=== PATIENT | male | born 1960 | race Caucasian/White ===

== ENCOUNTER 2024-04-26 00:40 | Day surgery (SDC) | payer OTHER, SELFPAY ==
[2024-04-18 11:13] VITALS: BMI 35.0
--- NOTE | 2024-04-18 11:14 | PC.NURSE ---
Report to the Outpatient Waiting Room, entrance under the green pavilion located off [facility], at time _0815_ on date _[id number]_. Planned Procedure Time: _1015_.? Time changes happen often and if your time is changed the preop area will call you the afternoon before. - You and your visitor will be asked to self-screen and do not enter if you have any COVID symptoms. Please call surgeon if you need to reschedule. - A mask is optional within the hospital at this time. Patients may have clear liquids (water, carbonated beverages, clear teas, apple juice) until 3 hours prior to surgery with a maximum of 20 ounces. - No food from midnight until time of surgery and no smoking, or chewing Tobacco (or any form of nicotine). No chewing gum, candy or mints. Take only the following medications with a SIP of water on the morning of surgery: ____Levothyroxine____ DO NOT STOP ANY OF YOUR OTHER PRESCRIPTION MEDICATIONS PRIOR TO SURGERY EXCEPT THE FOLLOWING Medications to discontinue per physician ___None____ Date to take last dose Please no make-up, nail sami, hairspray, perfume, deodorant, or body powder the day of surgery.? No jewelry (including any body piercings) or valuables the day of surgery, leave them at home.? Please take a shower or bath the night before, or the morning of, surgery with an antibacterial soap.? Wear comfortable, loose fitting clothing.? - Jewelry must be removed prior to entering the operating room.? Rings and piercings that are not removed may be cut off. - The hospital will not accept responsibility for valuables.? - Please leave all valuables, including medications, at home the day of surgery. If you are going home after surgery, a licensed assembly line driver must drive you home.? - NO public transportation without another adult if you receive anesthesia. - We recommend that an adult stay with you for 24 hours following discharge. - We also recommend that you do not drive, make important decision, drink alcoholic beverages, or take any drugs that were not prescribed by your health care provider for at least 24 hours after your discharge time. Hold all vitamins and supplements for 3 days per anesthesiologist. Follow any additional instructions given to you from your surgeon. Telephone instructions given to __Desmond__and asked if any additional questions and then verbalized understanding. Patient advised to call surgeon office or pre surgery nurse liaison [phone] if any additional questions
--- NOTE | 2024-04-24 06:57 | P.HP_ITS ---
History of Present Illness History of Present Illness Consent: Risks, benefits, and alternatives have been discussed and questions answered. Patient agrees to proceed with procedure. Chief complaint: elevated PSA Narrative: Desmond Christopher is a 63 year old male recently seen by our nurse practitioner with a PSA progression to 7.17. Prostate MRI demonstrates a 42 g gland with one PI-RADS 5 lesion in the left peripheral zone at the apex. After discussion of options he is elected for uroNav fusion biopsy. He is aware of the risks including, but not limited to, failure to diagnose the cancer, hematuria, rectal bleeding and bacteremia. Review of Systems Review of Systems: All systems reviewed & are unremarkable except as noted in HPI and below PMFSH Social History Social History Smoking status: Never smoker Living arrangements: with family Spiritual care concerns: No Meds Home Medications and Allergies Home Medications ?Medication ?Instructions ?Recorded ?Confirmed ?Type allopurinol 300 mg tablet 300 mg PO DAILY 04/18/24 04/18/24 History cyanocobalamin (vitamin B-12) 1,000 mcg PO DAILY 04/18/24 04/18/24 History 1,000 mcg tablet,extended release (Vitamin B-12 ER) levothyroxine 150 mcg tablet 150 mcg PO DAILY 04/18/24 04/18/24 History lisinopril 20 mg tablet 20 mg PO DAILY 04/18/24 04/18/24 History rosuvastatin 5 mg tablet 5 mg PO HS 04/18/24 04/18/24 History Allergies Allergy/AdvReac Type Severity Reaction Status Date / Time No Known Allergies Allergy Verified 04/18/24 11:03 Exam Const: General: no acute distress Resp: Effort & Inspection: normal respiratory effort GI: Inspection: non-distended GI Palp: No abdominal tenderness and No Guarding due to palpation present (GI) Auscultation: normal bowel sounds Assessment and Plan Assessment and plan (1) Elevated PSA: Code(s): R97.20 - Elevated prostate specific antigen [PSA] Status: Acute Assessment and Plan: * UroNav fusion biopsy
--- OUTSIDE RECORDS SUMMARY | 2024-04-26 00:47 | XMS_ITS | Encounter Summary ---
Author Organization [facility] Address [facility] [place] [address] Care Team Providers Care Holistic Pulser Name Role Phone Mirella Adan Primary Care Provider [phone] Encounter Details Date Type Department Care Team (Late st Contact Info) Description 10/11/2017 Abstract [facility] Mirella Adan PA [address] [place] [address] Social History Tobacco Use Types Packs/Day Years Used Date Smoking Tobacco: Never Assessed Sex and Gender Information Value Date Recorded Sex Assigned at Not on file Legal Sex Male 6:55 PM CDT Gender Identity Not on file Sexual Orientation Not on file documented as of this encounter Miscellaneous Notes * Letter - NADEEN Sheppard - 10/11/2017 12:00 AM CDT 10-11-2017 Desmond Christopher [address] [place] [id number] : 1960 Lab Order: TSH, free T4 Dx: E03.9 Hypothyroidism, unspecified Fasting [] Non-Fasting [x] Normal [x] Stat [] ING BOOKS LIBRARY CLERK * Letter - NADEEN Sheppard - 10/11/2017 12:00 AM CDT 10-11-2017 Desmond Christopher [address] [address] : 1960 Lab Order: Uric Acid Dx: M10.9 Gout, unspecified Fasting [] Non-Fasting [x] Normal [x] Stat [] ING BOOKS LIBRARY CLERK documented in this encounter Plan of Treatment Not on file documented as of this encounter Visit Diagnoses Not on filedocumented in this encounter Additional Health Concerns Infection Onset Date Last Indicated Resolved Time COVID-19 Rule Out 12/09/2019 12/09/2019 12/10/2019 3:36 PM CDT documented as of this encounter Care Teams Holistic Pulser Relationship Specialty Start Date End Date Mirella Adan PA [address] [place] [address] PCP - General PHYSICIAN SALVAGE WORKER 02/22/18 documented as of this encounter
--- OUTSIDE RECORDS SUMMARY | 2024-04-26 00:47 | XMS_ITS | Clinical Summary ---
Author Organization [facility] Address [address] [place] [address] Phone Care Team Providers Care Destination Imagination Coordinator Name Role Phone Unavailable Primary Care Provider Unavailabl e Encounters Date Type Department Care Team Description 04/05/2024 External Device Data [facility]STRACTION Provider, Abstract 03/27/2024 External Device Data [facility] Provider, Abstract 03/20/2024 External Device Data [facility]STRACTION Provider, Abstract from Last 3 Months Social History Tobacco Use Types Packs/Day Years Used Date Smoking Tobacco: Never Assessed Sex and Gender Information Value Date Recorded Sex Assigned at Not on file Legal Sex Male 2:45 PM CDT Gender Identity Not on file Sexual Orientation Not on file Plan of Treatment Health Maintenance Due Date Last Done Comments Pre-Diabetes and Diabetes Screening 1960 COLORECTAL SCREENING 2005 Colorectal Cancer Screening 2005 FIT-DNA Q 3 years 2005 FIT/FOBT Q 1 year 2005 Flex Sig/CT Colonography Q 5 years 2005 INFLUENZA VACCINE (#1) 2023 0, 01/15/2019 DTAP/TDAP/TD VACCINES (3 - T d or Tdap) 11/25/2032 11/25/2022, 08/17/2012 RSV VACCINE (60+ or ) (1 - 1-dose 75+ series) 11/17/2035 ZOSTER VACCINE Completed 12/26/2018, 10/10/2018 PNEUMOCOCCAL VACCINE 0-64 YEARS Aged Out No longer eligible b ased on patient's age to complete this topic Insurance [employer] BLUE ACCESS/TRUE BLUE PPO [employer] BLUE ACCESS CHOICE
--- OUTSIDE RECORDS SUMMARY | 2024-04-26 00:47 | XMS_ITS | Encounter Summary ---
Author Organization [facility] Address [address] [place] [address] Care Team Providers Care Fine Chemicals Operator Name Role Phone Mirella Adan Primary Care Provider [phone] Encounter Details Date Type Department Care Team ([facility] st Contact Info) Description 01/18/2024 Sai [employer] Message [facility] [address] [place] [address] [facility], [facility] Provider CT scan Social History Tobacco Use Types Packs/Day Years Used Date Smoking Tobacco: Never Smokeless Tobacco: Never Alcohol Use Standard Drinks/Week Comments No 0 (1 standard drink = 0.6 oz pur e alcohol) AUDIT-C Answer Date Recorded Frequency of Alcohol Consumption Never 02/22/2018 Average Number of Drinks Not on file 018 Frequency of Binge Drinking Not on file 02/11 PHQ-2 Answer Date Recorded Patient Health Questionnaire-2 Score 0 01/12/2024 Sex and Gender Information Value Date Recorded Sex Assigned at Not on file Legal Sex Male 6:55 PM CDT Gender Identity Not on file Sexual Orientation Not on file documented as of this encounter Plan of Treatment Not on file documented as of this encounter Visit Diagnoses Not on filedocumented in this encounter Additional Health Concerns Assessment Noted Time PHQ-9 Depression Total Score: 0 09/02/19 21 7:31 AM CDT documented as of this encounter Care Teams Fine Chemicals Operator Relationship Specialty Start Date End Date Mirella Adan PA [address] [place] [address] PCP - General PHYSICIAN FEATHER DRYING MACHINE OPERATOR 02/22/18 documented as of this encounter
--- OUTSIDE RECORDS SUMMARY | 2024-04-26 00:47 | XMS_ITS | Encounter Summary ---
Author Organization [facility] Address [address] [place] [address] Care Team Providers Care Chief Deputy Sheriff Name Role Phone Mirella Adan Primary Care Provider [phone] Encounter Details Date Type Department Care Team (Late st Contact Info) Description 12/07/2019 Prep for Procedure [facility] [address] [place], [place] [id number] Rinku Arguello MD [address] [address] Social History Tobacco Use Types Packs/Day Years Used Date Smoking Tobacco: Never Smokeless Tobacco: Never Alcohol Use Standard Drinks/Week Comments No 0 (1 standard drink = 0.6 oz pur e alcohol) AUDIT-C Answer Date Recorded Frequency of Alcohol Consumption Never 02/22/2018 Average Number of Drinks Not on file 018 Frequency of Binge Drinking Not on file 02/11 PHQ-2 Answer Date Recorded PHQ-2 Score - If the patient scores above 3, please move on to questions 3-9 0 11/15/2019 Sex and Gender Information Value Date Recorded Sex Assigned at Not on file Legal Sex Male 6:55 PM CDT Gender Identity Not on file Sexual Orientation Not on file COVID-19 Exposure Response Date Recorded In the last month, have you been in contact with someone who was confirmed or suspected to have Coronavirus / COVID-19? No / Unsure 12/09/2019 12:59 PM CDT documented as of this encounter Plan of Treatment Not on file documented as of this encounter Results * PRE-SURGICAL/PRE-PROCEDURE CORONAVIRUS (COVID 19) (12/09/2019 1:20 PM CDT) CORONAVIRUS SARS COV 2 PCR (RESP) NOT DETECTED NOT DETECTED 12/10/2019 3:35 PM CD[address] [facility] Comment: A Not Detected (negative) test result for this test means that SARS- CoV-2 RNA was not present in the specimen above the limit of detection. A negative result does not rule out the possibility of COVID-19 and should not be used as the sole basis for treatment or patient management decisions. If COVID-19 is still suspected, based on exposure history together with other clinical findings, re-testing should be considered in consultation with public health authorities. Laboratory test results should always be considered in the context of clinical observations and epidemiological data in making a final diagnosis and patient management decisions. Please review the Fact Sheets and FDA authorized labeling available for health care providers and patients using the following websites: https://www.bLife.com/home/Covid-19/HCP/QuestIVD/fact- sheet.html https://www.bLife.Enventum/home/Covid-19/Patients/ QuestIVD/fact-sheet.html This test has been authorized by the FDA under an Emergency Use Authorization (EUA) for use by authorized laboratories. Due to the current public health emergency, [facility] is receiving a high volume of samples from a wide variety of swabs and media for COVID-19 testing. In order to serve patients during this public health crisis, samples from appropriate clinical sources are being tested. Negative test results derived from specimens received in non-commercially manufactured viral collection and transport media, or in media and sample collection kits not yet authorized by FDA for COVID-19 testing should be cautiously evaluated and the patient potentially subjected to extra precautions such as additional clinical monitoring, including collection of an additional specimen. Methodology: Nucleic Acid Amplification Test (NAAT) includes PCR or TMA Additional information about COVID-19 can be found at the [facility] website: www.Existence Before Essence.com/Covid19. Test performed at [facility] [address] [place] [address] Director: JENISE WHEAT DO,MPH FIRST TEST YES 12/09/2019 1:00 PM CDT [facility] EMPLOYED IN HEALTHCARE NO 12/09/2019 1:00 PM CDT [facility] SYMPTOMATIC DEFINED BY CDC NO 12/09/2019 1:00 PM CDT [facility] DATE OF SYMPTOM ONSET UNKNOWN 12/09/2019 1:24 PM CDT [facility] HOSPITALIZATION STATUS NO 12/09/2019 1:00 PM CDT [facility] PATIENT IN ICU NO 12/09/2019 1:00 PM CDT [facility] RESIDENT OF [facility] CARE NO 12/09/2019 1:00 PM CDT [facility] NO 12/09/2019 1:24 PM CDT [facility] PATIENT'S RACE WHITE OR 12/09/2019 1:00 PM CDT [facility] ETHNICITY NONHISPANIC 12/09/2019 1:00 PM CDT [facility] SOURCE (QST) NASOPHARYNGEAL SWAB 12/09/2019 1:00 PM CDT [facility] NASOPHARYNGEAL SWAB / Unknown 12/09/2019 1:20 PM CDT Rinku Arguello MD MICROBIOLOGY - GENERAL ORDERABLE S Final Result [facility] [address] [place] [address], [facility] [id number] [place] [address], documented in this encounter Visit Diagnoses Diagnosis Preop testing- Primary Preoperative examination, unspecified documented in this encounter Additional Health Concerns Infection Onset Date Last Indicated Resolved Time COVID-19 Rule Out 12/09/2019 12/09/2019 12/10/2019 3:36 PM CDT documented as of this encounter Care Teams Chief Deputy Sheriff Relationship Specialty Start Date End Date Mirella Adan PA [address] [place] [address] PCP - General PHYSICIAN ATM TECHNICIAN 02/22/18 documented as of this encounter
--- OUTSIDE RECORDS SUMMARY | 2024-04-26 00:47 | XMS_ITS | Clinical Summary ---
Author Organization [facility] Address [facility] [place] [address] Care Team Providers Care Signal Fitter Name Role Phone Mirella Adan Primary Care Provider [phone] Allergies No known active allergies Medications aspirin EC 81 MG tablet Take 1 tablet (81 mg total) by mouth daily. Active levothyroxine (SYNTHROID) 150 MCG tabletIndications:H ypothyroidism, unspecified type Take 1 tablet (150 mcg total) by mouth daily. 90 tablet 3 4 Active lisinopril (PRINIVIL) 20 MG tabletIndications:H ypertension, unspecified type Take 1 tablet (20 mg total) by mouth daily. 90 tablet 3 4 Active celecoxib (CELEBREX) 200 MG capsuleIndications: Primary osteoarthritis, unspecified site Take 1 capsule (200 mg total) by mouth daily. 90 capsule 1 4 Active allopurinol (ZYLOPRIM) 300 MG tabletIndications:C hronic gout of multiple sites, unspecified cause Take 1 tablet (300 mg total) by mouth daily. 90 tablet 3 4 Active rosuvastatin (CRESTOR) 5 MG tabletIndications:H yperlipidemia, unspecified hyperlipidemia type Take 1 tablet (5 mg total) by mouth nightly at bedtime. at bedtime 90 tablet 3 4 Active Active Problems Problem Noted Date Diagnosed Date Hyperlipidemia, unspecified hyperlipidemia type 09/07/2021 Hypertension, unspecified type 09/01/2020 Screening for colon cancer 12/07/2019 Overview (12/07/2019): Added automatically from request for surgery [id number] Gout 08/17/2012 Hypothyroidism 08/17/2012 Overview (02/23/2018): slight tremor Obesity 08/17/2012 Resolved Problems Problem Noted Date Diagnosed Date Resolved Date Neck mass 02/06/2019 09/07/2021 Overview (02/06/2019): Added automatically from request for surgery [id number] Encounters Date Type Department Care Team Description 03/16/2024 Scan [email or web address].sh SRVCS Scanned, [facility] 02/21/[address] [place] [phone] Mirella Adan, PA Referral 01/31/[address] [place] [phone] Mirella Adan, PA Lab Results ([facility]) 01/31/2024 Orders [address] [place] [phone] Mirella Adan, PA 01/27/2024 Scan ViViFi INFO SRVCS Scanned, [facility] Lab (SCAN) from Last 3 Months Immunizations Name Administration Dates Next Due Flublok (Quadrivalent) 12/09/2019 Fluzone 6 Months+ Quad (0.5 mL Prefilled Syringe ) 01/15/2019 Influenza Adult (Generic) 12/09/2019 Shingrix 12/26/2018,10/10/2018 Td 08/14/2007 Tdap (Adacel) 11/25/2022 Tdap (Generic) 08/17/2012 Family History Medical History Relation Comments Alcohol Abuse Brother Cancer Father tongue-smoker Stroke Maternal Grandfather Alcohol Abuse Mother Relation Status Comments Brother Father Maternal Grandfather Mother Social History Tobacco Use Types Packs/Day Years Used Date Smoking Tobacco: Never Smokeless Tobacco: Never Tobacco Cessation:Counseling Given: No Alcohol Use Standard Drinks/Week Comments No 0 [...] on file Sexual Orientation Not on file Last Filed Vital Signs Vital Sign Reading Time Taken Comments Blood Pressure 129/88 01/12/2024 3:20 PM CDT Pulse 83 01/12/2024 3:20 PM CDT Temperature 36.2 C (97.1 F) 01/12/2024 3:20 PM CDT Respiratory Rate 18 01/12/2024 3:20 PM CDT Oxygen Saturation 98% 01/12/2024 3:20 PM CDT Inhaled Oxygen Concentration - - Weight 128.5 kg (283 lb 6.4 oz) 01/12/2024 3:20 PM CDT Height 188 cm (6' 2 ) 01/12/2024 3:20 PM CDT Body Mass Index 36.39 01/12/2024 3:20 PM CDT Plan of Treatment Health Maintenance Due Date Last Done Comments COVID-19 Vaccine ( season) 2023 01/04/2022, 01/16/2021, 05/23/2020, Additional history exists Influenza Adult (#1) 2023 01/04/2022, 04/03/2021, 12/09/2019, Additional history exists PHQ-2 (Physician [place]) 03/14/2024 01/12/2024 Annual Physical 01/11/2025 01/12/2024, 11/12, 09/07/2021, Additional history exists PHQ-2 (Physician [place]) 01/11/2025 01/12/2024 Colorectal Cancer Screening Colonoscopy (10 Years) 12/11/2029 12/12/2019 DTaP, Tdap and Td Vaccines (3 - Td or Tdap) 11/25/2032 11/25/2022, 08/17/2012, 08/14/2007 RSV Immunization or 60+ Years (1 - 1-dose 75+ series) 11/17/2035 Zoster Vaccines Completed 12/26/2018, 10/10/2018 Hepatitis C Completed 12/08/2022 Meningococcal B Vaccine Aged Out No l onger eligible based on patient's age to complete this topic Meningococcal Vaccine Aged Out No ida bharathi eligible based on patient's age to complete this topic Pneumococcal Vaccine: Pediatrics (0 to 5 Years) and At-Risk Patients (6 to 64 Years) Aged Out No longer eligible based on patient's age to complete this topic RSV Immunizations Under 20 Months Aged Out No longer eligible based on patient's age to complete this topic Procedures Procedure Name Priority Date/Time Associated Diagnosis Comments OUTSIDE LAB (SCAN ORDER) 01/27/2024 HEP C SCANNED ORDERS Routine 12/08/2022 from Last 3 Months or Most Recently Relevant to Health Maintenance Results * OUTSIDE LAB (SCAN ORDER) (01/27/2024) 01/27/2024 [facility] Scanned SCANNING Final Resu lt * HEP C SCANNED ORDERS (12/08/2022) [facility] Scanned SCANNING Final Resu lt [facility] from Last 3 Months or Most Recently Relevant to Health Maintenance Insurance [place] [address] Care Teams Signal Fitter Relationship Specialty Start Date End Date Mirella Adan PA [address] [place], [place] [address] PCP - General PHYSICIAN TELECINE OPERATOR 02/22/18
--- NOTE | 2024-04-26 06:36 | WPDHPUPDATE1 ---
History and Physical Update Update Date/Time: 04/26/24 06:36 History and Physical has been reviewed, including an updated exam of the patient. There are NO changes in the patient's condition. Risks, benefits, and alternatives have been discussed and questions answered. Patient agrees to proceed with procedure.
[2024-04-26] MEDS: LACTATED RINGERS 1,000 ML 30 ML IV CONT (09:00)
--- NOTE | 2024-04-26 09:20 | P.PNAN_ITS ---
Anes - Initial Pre Proc Eval Procedure: Operation Date: 04/26/24 10:15 Proposed Procedures p Trans Rectal Ultrasound Fusion Guided Prostate Biopsy - Rahul Dwyer MD Date/Time: 04/26/24 09:20 Surgeon: Rahul Dwyer MD Pre Op Diagnosis: elevated PSA Patient Data Age: 63 Gender: M Height: 1.91 m Weight: 127.3 kg Allergies Allergy/AdvReac Type Severity Reaction Status Date / Time No Known Allergies Allergy Verified 04/18/24 11:03 Home Medications ?Medication ?Instructions ?Recorded ?Confirmed ?Type allopurinol 300 mg tablet 300 mg PO DAILY 04/18/24 04/18/24 History cyanocobalamin (vitamin B-12) 1,000 mcg PO DAILY 04/18/24 04/18/24 History 1,000 mcg tablet,extended release (Vitamin B-12 ER) levothyroxine 150 mcg tablet 150 mcg PO DAILY 04/18/24 04/18/24 History lisinopril 20 mg tablet 20 mg PO DAILY 04/18/24 04/18/24 History rosuvastatin 5 mg tablet 5 mg PO HS 04/18/24 04/18/24 History Patient hx anesthesia problems: none Family hx anesthesia problems: none Results Review: All pre-operative results and documents have been reviewed as part of the pre- operative evaluation. [facility] Past Medical History Medical History (Updated 04/26/24 @ 09:23 by Zhen Garcia MD) Quadriceps tendon rupture Obesity Hyperlipidemia HTN (hypertension) Social History Social History Smoking status: Never smoker Living arrangements: with family Spiritual care concerns: No Anes - Eval Final PreProcedure Day of Procedure 04/26/24 09:20 Patient weight: obese Heart: regular rate and rhythm Lungs: clear to auscultation Airway: Mallampati scale class II Neurological: alert and oriented Last oral intake: >/= 8 hours ASA classification: III Emergent: no Anesthetic plan: proceed Anesthesia type and monitoring: general GIVS and standard monitoring Results Review: All pre-operative results and documents have been reviewed as part of the pre- operative evaluation. Informed Consent: The patient's anesthetic plan and its attendant risks and benefits were discussed with the patient/family/POA. Questions were solicited and answers pr ovided to the satisfaction of the patient/family/POA.
[2024-04-26 09:57] VITALS: BP 153/94; PULSE 75; RESP 16; TEMP 36.6; O2SAT 96
[2024-04-26 09:59] VITALS: BMI 35.6
--- NOTE | 2024-04-26 10:40 | P.OP_ITS ---
Procedure Note - Detailed Date of Procedure 04/26/24 Pre-op Diagnosis Elevated PSA Post-op Diagnosis Same Procedure Performed Uronav fusion biopsy prostate Surgeon Rahul Dwyer MD Anesthesia General Description of Procedure 1) Activity: * No driving or important decisions [id number]. * No lifting/straining >15 lbs. [id number]. 2) Diet: Resume normal pre-admission diet. 3) Follow-up: I will contact with pathology report and follow-up instructions. Pathology Yes Complications No immediate complications Condition Stable
[2024-04-26 10:43] VITALS: BP 120/81; PULSE 79; RESP 14; O2SAT 97
[2024-04-26 10:53] VITALS: O2SAT 98
[2024-04-26 11:10] VITALS: BP 132/90; PULSE 68; RESP 16
--- NOTE | 2024-04-26 11:30 | SUR.PHASEII ---
Pt states he feels like he needs to urinate but is unsuccessful after two attempts. This RN notified of the patients concerns. orders the patient be bladder scanned. Bladder scan results: 335 This RN reported results to Dr. Dwyer, states results are not concerning and patient can leave when he meets all other discharge criteria.
[2024-04-26 11:40] VITALS: BP 137/87; PULSE 67; RESP 18
[2024-04-26 12:10] VITALS: BP 136/85; PULSE 70; RESP 16
== END 2024-04-26 12:25 | disposition home or self-care (01) ==
PROVIDERS: Visit Provider Urology
PROC: (CPT 55700; principal; 2024-04-26 10:15)
DX: C61 Malignant neoplasm of prostate (principal); N42.32 Atypical small acinar proliferation of prostate; R97.20 Elevated prostate specific antigen [PSA]; E78.5 Hyperlipidemia, unspecified; I10 Essential (primary) hypertension; E66.9 Obesity, unspecified; Z68.35 Body mass index [BMI] 35.0-35.9, adult
CPT/HCPCS: 76872; 55700; G0416; J1100; J2003; J2250; J2405; J2704; J3010; J7120

== ENCOUNTER 2024-05-15 09:01 | Outpatient (CLI) | payer OTHER, SELFPAY ==
[2024-05-15 09:25] LABS: Estimated Glomerular Filt Rate > 60
== END 2024-05-15 09:02 | disposition home or self-care (01) ==
LOC: ANHIMG 09:08
PROVIDERS: Visit Provider Urology
DX: C61 Malignant neoplasm of prostate (principal); K76.0 Fatty (change of) liver, not elsewhere classified; N32.89 Other specified disorders of bladder
CPT/HCPCS: 74177; 78306; A9503; Q9967

== ENCOUNTER 2024-09-18 09:31 | Outpatient (CLI) | payer OTHER, SELFPAY ==
--- NOTE | ~2024-09-18 | XR_ITS ---
CHEST RADIOGRAPH, PA AND LATERAL CLINICAL HISTORY: C61 - Malignant neoplasm of prostate . COMPARISON: None available TECHNIQUE: PA and lateral views of the chest. FINDINGS The cardiomediastinal silhouette is unremarkable. 9 mm calcified granuloma within the left lower lobe, unchanged from CT examination dated 05/15/2024. The bilateral lung garcía are otherwise clear. Significant degenerative disease within the bilateral acromioclavicular joint spaces with osteophyte formation and joint space narrowing on the right and osteophyte formation and joint space widening on the left. IMPRESSION: No focal infiltrate or effusion. Reviewed, dictated and finalized at location A.
--- OUTSIDE RECORDS SUMMARY | 2024-09-18 09:36 | XMS_ITS | Encounter Summary ---
Author Organization [facility] Address [address] [place] [address] Care Team Providers Care It Compliance Analyst Name Role Phone Mirella Adan Primary Care Provider [phone] Encounter Details Date Type Department Care Team (Late st Contact Info) Description 12/07/2019 Prep for Procedure [facility] [address] [place] [address] Rinku Arguello MD [address] [address] Social History Tobacco Use Types Packs/Day Years [...] DETECTED NOT DETECTED 12/10/2019 3:35 PM CDT [facility] Comment: A Not Detected (negative) test result [...] providers and patients using the following websites: https://www.Datamyne.com/home/Covid-19/HCP/QuestIVD/fact- sheet.html https://www.Datamyne.MobiKwik/home/Covid-19/Patients/ QuestIVD/fact-sheet.html This test has been authorized by the FDA under an Emergency Use Authorization (EUA) for use by authorized laboratories. Due to the current public health emergency, [facility] is receiving a high volume of samples [...] about COVID-19 can be found at the [facility] website: www.FedCyber.MobiKwik/Covid19. Test performed at [facility] [address] [address] Director: JENISE WHEAT DO,MPH FIRST TEST YES 12/09/2019 1:00 PM CDT [facility] EMPLOYED IN HEALTHCARE NO 12/09/2019 1:00 PM CDT [facility] SYMPTOMATIC DEFINED BY CDC NO 12/09/2019 1:00 PM CDT [facility] DATE OF SYMPTOM ONSET UNKNOWN 12/09/2019 1:24 PM CDT [facility] HOSPITALIZATION STATUS NO 12/09/2019 1:00 PM CDT [facility] PATIENT IN ICU NO 12/09/2019 1:00 PM CDT [facility] NO 12/09/2019 1:00 PM CDT [facility] NO 12/09/2019 1:24 PM CDT [facility] PATIENT'S RACE WHITE OR 12/09/2019 1:00 PM CDT [facility] ETHNICITY NONHISPANIC 12/09/2019 1:00 PM CDT [facility] SOURCE (QST) NASOPHARYNGEAL SWAB 12/09/2019 1:00 PM CDT [facility] NASOPHARYNGEAL SWAB / Unknown 12/09/2019 1:20 PM CDT us Rinku Arguello MD MICROBIOLOGY - GENERAL ORDERABLE S Final Result [facility] [address] [place] [address], [facility] [address] [facility] [place] [address], documented in this encounter Visit Diagnoses Diagnosis Preop testing- Primary Preoperative examination, unspecified documented in this encounter Additional Health Concerns Infection Onset Date Last Indicated Resolved Time COVID-19 Rule Out 12/09/2019 12/09/2019 12/10/2019 3:36 PM CDT documented as of this encounter Care Teams It Compliance Analyst Relationship Specialty Start Date End Date Mirella Adan PA [address] [place] [address] PCP - General PHYSICIAN SKIN TANNER 02/22/18 documented as of this encounter
--- OUTSIDE RECORDS SUMMARY | 2024-09-18 09:36 | XMS_ITS | Clinical Summary ---
Author Organization [facility] Address [facility] [place] [address] Care Team Providers Care Information Systems Analyst Name Role Phone Mirella Adan Primary Care Provider [phone] Allergies No known active allergies Medications aspirin EC 81 MG tablet Take 1 tablet (81 mg total) by mouth daily. Active lisinopril (PRINIVIL) 20 MG tabletIndications:H ypertension, [...] at bedtime 90 tablet 3 4 Active levothyroxine (SYNTHROID) 150 MCG tabletIndications:H ypothyroidism, unspecified type Take 1 tablet (150 mcg total) by mouth daily. 90 tablet 3 5 Active Active Problems Problem Noted Date Diagnosed Date Hyperlipidemia, unspecified hyperlipidemia type 09/07/2021 Hypertension, unspecified type 09/01/2020 Screening for colon cancer 12/07/2019 Overview (12/07/2019): Added automatically from request for surgery [id number] Gout 08/17/2012 Hypothyroidism 08/17/2012 Overview (02/23/2018): slight tremor Obesity 08/17/2012 Resolved Problems Problem Noted Date Diagnosed Date Resolved Date Neck mass 02/06/2019 09/07/2021 Overview (02/06/2019): Added automatically from request for surgery [id number] Encounters Date Type Department Care Team Description 09/10/[address] [address] Mirella Adan PA MRI Results 09/06/2024 1:55 PM CDT - 09/06/2024 11:59 PM CDT Hospital Encounter [facility] MRI [address] [place] [address] Portillo Hyatt, DO Discharge Disposition: Home or Self Care (Routine Discharge) 09/06/2024 Scan [facility] SRVCS Scanned, [facility] 09/06/2024 Travel 09/03/2024 2:20 PM CDT Office Visit [address] [address] Mirella Adan PA ER F/U (Left achilles tendon tear ) 09/03/2024 Travel 09/01/2024 2:01 PM CDT - 09/01/2024 3:[address] [facility] Emergency Room [address] [place] [address] Enma Munoz MD Leg Injury Discharge Disposition: Home or Self Care (Routine Discharge) 09/01/2024 Travel 08/07/[address] [address] Mirella Adan PA Refill Request (levothyroxin 150mg-- pt wants a 90 day) from Last 3 Months Immunizations Immunization Administration Dates Next Due Flublok (Quadrivalent) 12/09/2019 [...] Average Number of Drinks Not on file Frequency of Binge Drinking Not on file 02/11 PHQ-2 Answer Date Recorded Patient Health Questionnaire-2 Score 0 01/12/2024 Sex and Gender Information Value Date Recorded Sex Assigned at Not on file Legal Sex Male 6:55 PM CDT Gender Identity Not on file Sexual Orientation Not on file Last Filed Vital Signs Vital Sign Reading Time Taken Comments Blood Pressure 124/80 09/03/2024 2:21 PM CDT Pulse 82 09/03/2024 2:21 PM CDT Temperature 36.8 C (98.2 F) 09/03/2024 2:21 PM CDT Respiratory Rate 18 09/03/2024 2:21 PM CDT Oxygen Saturation 98% 09/03/2024 2:2 1 PM CDT Inhaled Oxygen Concentration - - Weight 124.7 kg (275 lb) 09/03/2024 2:2 1 PM CDT patient stated Height 185.4 cm (6' 1) 09/03/2024 2:21 PM CDT Body Mass Index 36.28 09/03/2024 2:21 PM CDT Plan of Treatment Health Maintenance Due Date Last Done Comments Pneumococcal Vaccine: 50+ Years (1 of 1 - PCV) 2010 COVID-19 Vaccine (2023- season) 2023 01/04/2022, 01/16/2021, 05/23/2020, Additional history exists PHQ-2 (Physician [place]) 03/14/2024 01/12/2024 Annual Physical 01/11/2025 01/12/2024, 11/12, 09/07/2021, Additional history exists Colorectal Cancer Screening Colonoscopy (10 Years) 12/11/2029 [...] Procedure Name Priority Date/Time Associated Diagnosis Comments MRI ANKLE LT WO CON Routine 09/06/2024 3 :11 PM CDT Other instability, left ankle SPLINT APPLICATION Routine 09/01/2024 3: 00 PM CDT XR ANKLE RT M3V STAT 09/01/2024 2:42 PM CDT HEP C SCANNED ORDERS Routine 12/08/2022 from Last 3 Months or Most Recently Relevant to Health Maintenance Results * MRI ANKLE LT WO CON (09/06/2024 3:11 PM CDT) Anatomical Region Laterality Modality Ankle Magnetic Resonan ce 09/11/2024 10:3 6 AM CDT Impressions 09/11/2024 10:47 AM CDT IMPRESSION: Full-thickness tear of the Achilles approximately 7.8 cm proximal to the insertion. 1.7 cm of retraction. A few of the fibers are torn only 3.9 cm from the insertion are retracted further, approximately 5.6 cm. Background of diffuse tendinosis of the Achilles. There is likely evidence of chronic plantar fasciitis, but the plantar fascia is not well visualized and is partially beyond the [id number]. Mild intrinsic muscular atrophy. Ordered By: PORTILLO HYATT Interpreted By: Dwayne Crespo, 09/11/2024 10:36 AM Narrative 09/11/2024 10:47 AM CDT [facility] [address] [facility] [address] EXAMINATION: MRI Left Ankle without Contrast EXAM DATE: 09/06/2024 2:11 PM REASON FOR EXAM: Instability of left ankle Heel injury and pain and swelling. COMPARISON: None TECHNIQUE: Multisequence multiplanar imaging of the ankle without intravenous contrast. FINDINGS: Diffuse soft tissue swelling, worst posteriorly. No evidence of joint effusion. Syndesmotic ligaments: Anterior and posterior syndesmotic ligaments are intact. Anterior talofibular ligament: Within normal limits. Posterior talofibular ligament: Within normal limits. Calcaneofibular ligament: Within normal limits. Lisfranc ligament: Not visualized, beyond the field of view. Dorsal talonavicular ligament: Within normal limits. Deltoid ligament: Within normal limits. Spring Ligament: Within normal limits. Plantar fascia: There is likely evidence of chronic plantar fasciitis, but the plantar fascia is not well visualized and is partially beyond the [id number]. Sinus Tarsi: Within normal limits. Tendons: The extensors: Within normal limits. Peroneal: Within normal limits. Flexors: Within normal limits. Achilles: Full-thickness tear of the Achilles approximately 7.8 cm proximal to the insertion. 1.7 cm of retraction. A few of the fibers are torn only 3.9 cm from the insertion are retracted further, approximately 5.6 cm. Background of diffuse tendinosis of the Achilles. Bones: No acute fracture or dislocation. Talar Dome: No evidence of osteochondral lesion of the talus. Intrinsic muscles: Mild intrinsic muscular atrophy. Procedure Note Dwayne Crespo MD - 09/11/2024 [facility] [address] [facility] [place] [address] EXAMINATION: MRI Left Ankle without Contrast EXAM DATE: 09/06/2024 2:11 PM REASON FOR EXAM: Instability of left ankle Heel injury and pain and swelling. COMPARISON: None TECHNIQUE: Multisequence multiplanar imaging of the ankle withoutintravenous contrast. FINDINGS: Diffuse soft tissue swelling, worst posteriorly. No evidence of jointeffusion. Syndesmotic ligaments: Anterior and posterior syndesmotic ligaments areintact. Anterior talofibular ligament: Within normal limits. Posterior talofibular ligament: Within normal limits. Calcaneofibular ligament: Within normal limits. Lisfranc ligament: Not visualized, beyond the field of view. Dorsal talonavicular ligament: Within normal limits. Deltoid ligament: Within normal limits. Spring Ligament: Within normal limits. Plantar fascia: There is likely evidence of chronic plantar fasciitis,but the plantar fascia is not well visualized and is partially beyond [id number]. Sinus Tarsi: Within normal limits. Tendons: The extensors: Within normal limits. Peroneal: Within normal limits. Flexors: Within normal limits. Achilles: Full-thickness tear of the Achilles approximately 7.8 cmproximal to the insertion. 1.7 cm of retraction. A few of the fibers are torn only 3.9 cm from the insertion are retractedfurther, approximately 5.6 cm. Background of diffuse tendinosis of the Achilles. Bones: No acute fracture or dislocation. Talar Dome: No evidence of osteochondral lesion of the talus. Intrinsic muscles: Mild intrinsic muscular atrophy. IMPRESSION: Full-thickness tear of the Achilles approximately 7.8 cm proximal to theinsertion. 1.7 cm of retraction. A few of the fibers are torn only 3.9 cm from the insertion are retractedfurther, approximately 5.6 cm. Background of diffuse tendinosis of theAchilles. There is likely evidence of chronic plantar fasciitis, but the plantarfascia is not well visualized and is partially beyond the [id number].Mild intrinsic muscular atrophy. Ordered By: PORTILLO HYATT Interpreted By: Dwayne Crespo, 09/11/2024 10:36 AM Portillo Hyatt DO MRI Final Result * Splint Application (09/01/2024 3:00 PM CDT) Narrative Enma Munoz MD - 09/01/2024 3:00 PM CDT Enma Munoz MD 09/03/2024 9:02 AM Splint Application Date/Time: 09/01/2024 3:00 PM Performed by: Enma Munoz MD Authorized by: Enma Munoz MD Consent: Consent obtained: Verbal Consent given by: Patient Risks, benefits, and alternatives were discussed: yes Risks discussed: Numbness and pain [place] protocol: Procedure explained and questions answered to patient or proxy's satisfaction: yes Patient identity confirmed: Verbally with patient Pre-procedure details: Distal neurologic exam: Normal Distal perfusion: distal pulses strong and brisk capillary refill Procedure details: Location: Leg Leg location: L lower leg Supplies: Prefabricated splint Post-procedure details: Distal neurologic exam: Normal Distal perfusion: unchanged Procedure completion: Tolerated well, no immediate complications us Enma Munoz MD PROCEDURE/MINOR SURGICAL ORD ERABLES Final Result * XR ANKLE RT M3V (09/01/2024 2:42 PM CDT) Anatomical Region Laterality Modality Ankle Radiographic Fannie ging 09/01/2024 2:43 PM CDT Impressions 09/01/2024 2:46 PM CDT IMPRESSION: 1. No acute findings. 2. Calcaneal spurs. 3. Calcific Achilles tendinopathy. Referred By: Interpreted By: Bill Manrique MD, 09/01/2024 2:43 PM Narrative 09/01/2024 2:46 PM CDT [facility] [id number] [place] [address] Examination: Right ankle. Exam time: 1431 hours. Clinical history: Heel pain. Comparison: 10/24/2014. Technique: Three views. Findings: No fracture, dislocation or other acute bony abnormality is identified. Plantar calcaneal spur is again evident and is now moderate sized. Small Achilles calcaneal spur has also enlarged and there is now some calcification in the Achilles tendon near the insertion compatible with a tendinopathy. No other significant bone or joint abnormality is noted. The soft tissues are unremarkable. Procedure Note Bill Manrique MD - 09/01/2024 [facility] [address] [place] [address] Examination: Right ankle. Exam time: 1431 hours. Clinical history: Heel pain. Comparison: 10/24/2014. Technique: Three views. Findings: No fracture, dislocation or other acute bony abnormality isidentified. Plantar calcaneal spur is again evident and is now moderatesized. Small Achilles calcaneal spur has also enlarged and there is nowsome calcification in the Achilles tendon near the insertion compatiblewith a tendinopathy. No other significant bone or joint abnormality isnoted. The soft tissues are unremarkable. IMPRESSION: 1. No acute findings. 2. Calcaneal spurs. 3. Calcific Achilles tendinopathy. Referred By: Interpreted By: Bill Manrique MD, 09/01/2024 2:43 PM Enma Munoz MD GENERAL IMAGING Final Result * HEP C SCANNED ORDERS (12/08/2022) [facility] Scanned SCANNING Final Resu lt [facility] from Last 3 Months or Most Recently Relevant to Health Maintenance Insurance [employer] Care Teams Information Systems Analyst Relationship Specialty Start Date End Date Mirella Adan PA [address] [place] [address] PCP - General PHYSICIAN PAPER GOODS MACHINE OPERATOR 02/22/18
--- OUTSIDE RECORDS SUMMARY | 2024-09-18 09:36 | XMS_ITS | Clinical Summary ---
Author Organization [facility] Address [address] [place] [address] Phone Care Team Providers Care Snow Plow Tractor Operator Name Role Phone Mirella Adan Primary Care Provider [phone] Allergies No known active allergies Medications allopurinol (ZYLOPRIM) 300 MG Tablet Take 300 mg by mouth daily. 01/12/2024 Active aspirin EC 81 MG Tablet Delayed Response Take 81 mg by mouth daily. Active celecoxib (CeleBREX) 200 MG Capsule Take 200 mg by mouth daily as needed. 01/12/2024 Active levothyroxine (SYNTHROID) 150 MCG Tablet Take 150 mcg by mouth daily. 08/07/2024 Active lisinopril (PRINIVIL, ZESTRIL) 20 MG Tablet Take 20 mg by mouth daily. 01/12/2024 Active rosuvastatin (CRESTOR) 5 MG Tablet Take 5 mg by mouth daily. 01/12/2024 Active Cyanocobalamin (VITAMIN B-12 PO) Take by mouth. Active Active Problems Problem Noted Date Diagnosed Date Hyperlipidemia 09/07/2021 Hypertension 09/01/2020 Screening for colon cancer 12/07/2019 Overview (09/11/2024): Added automatically from request for surgery [id number] Gout 08/17/2012 Hypothyroidism 08/17/2012 Overview (09/11/2024): slight tremor Obesity 08/17/2012 Encounters Date Type Department Care Team Description 09/11/2024 1:00 PM CDT Office Visit [facility] [address] [place] [address] Nadya Sarmiento, SVP [employer], EXPORT SALES ASSISTANT Achilles tendon rupture, left, subsequent encounter (Primary Dx) 09/11/2024 Travel from Last 3 Months Immunizations Immunization Administration Dates Next Due Influenza Vaccine, Quadrivalent, PF 01/15/2019 Influenza, Recombinant, Quadrivalent,injectable, Pf 12/09/2019 TD VACCINE 08/14/2007 TDAP Vaccine 11/25/2022,08/17/2012 Zoster Vaccine Recombinant 12/26/2018,10/10/2018 Social History Tobacco Use Types Packs/Day Years Used Date Smoking Tobacco: Never Smokeless Tobacco: Never Tobacco Cessation:Counseling Given: Not Answered Alcohol Use Standard Drinks/Week Comments Never 0 (1 standard drink = 0.6 oz pur e alcohol) Sex and Gender Information Value Date Recorded Sex Assigned at Not on file Legal Sex Male 4:39 PM CDT Gender Identity Not on file Sexual Orientation Not on file Last Filed Vital Signs Vital Sign Reading Time Taken Comments Blood Pressure 123/77 09/11/2024 1:35 PM CDT Pulse 96 09/11/2024 1:35 PM CDT Temperature 36.6 C (97.8 F) 09/11/2024 1:35 PM CDT Respiratory Rate - - Oxygen Saturation 95% 09/11/2024 1:35 PM CDT Inhaled Oxygen Concentration - - Weight 134.5 kg (296 lb 9.6 oz) 09/11/2024 1:35 PM CDT Height 190.5 cm (6' 3) 09/11/2024 1:35 PM CDT Body Mass Index 37.07 09/11/2024 1:35 PM CDT Plan of Treatment Health Maintenance Due Date Last Done Comments Hepatitis C Virus (HCV) Screening 1960 Cologuard 2005 Colonoscopy 2005 Colorectal Cancer Screening 2005 Immunochemical Fecal Occult Blood 2005 Pneumococcal Immunization (5 0+ years) (1 of 1 - PCV) 2010 PSA Discussion 11/17/2015 SARS-COV-2 Immunization ( - 2023- season) 2023 Influenza Immunization (#1) 2024 09/2 09/2019, 01/15/2019 Td Immunization Every 10 Yea rs (Adults With 1 Tdap) 11/25/2032 11/25/2022, 08/17/2012, 08/14/2007 Respiratory Syncytial Virus (RSV) Immunization (Adult) (1 - 1-dose 75+ series) 11/17/2035 Zoster Immunization Completed 12/26/2018, 10/10/2018 TdaP Immunization Discontinued 11/25/2022, 08/17/2012 Hepatitis B Immunization Aged Out No longer eligible based on patient's age to complete this topic Human Papillomavirus (HPV) Immunization Aged Out No longer eligible based on patient's age to complete this topic Meningococcal Immunization (ACWY) Aged Out No longer eligible based on patient's age to complete this topic Rotavirus Immunization Aged Out No lo nger eligible based on patient's age to complete this topic [facility] Care Teams Snow Plow Tractor Operator Relationship Specialty Start Date End Date Mirella Adan PA [address] [place] [id number] PCP - General Physician Turn Operator 09/11/24
--- OUTSIDE RECORDS SUMMARY | 2024-09-18 09:36 | XMS_ITS | Encounter Summary ---
Author Organization [facility] Address [address] [place] [address] Care Team Providers Care Garment Supervisor Name Role Phone Mirella Adan Primary Care Provider [phone] Encounter Details Date Type Department Care Team ([facility] st Contact Info) Description 01/18/2024 Mechio Message [facility] [address] [place] [address] [facility], [facility] Provider CT scan Social History [...] documented as of this encounter Care Teams Garment Supervisor Relationship Specialty Start Date End Date Mirella Adan PA [address] [place] [address] PCP - General PHYSICIAN TERMINAL CLERK 02/22/18 documented as of this encounter
--- OUTSIDE RECORDS SUMMARY | 2024-09-18 09:36 | XMS_ITS | Encounter Summary ---
Author Organization [facility] Address [facility] [place] [address] Care Team Providers Care Meatcutter Name Role Phone Mirella Adan Primary Care Provider [phone] Encounter Details Date Type Department Care Team ([facility] st Contact Info) Description 10/11/2017 Abstract [facility] Mirella Adan PA [address] [place] [address] Social History Tobacco Use Types Packs/Day Years Used Date Smoking Tobacco: Never Assessed Sex and Gender Information Value Date Recorded Sex Assigned at Not on file Legal Sex Male 6:55 PM CDT Gender Identity Not on file Sexual Orientation Not on file documented as of this encounter Miscellaneous Notes * Letter - NADEEN Sheppard - 10/11/2017 12:00 AM CDT 10-11-2017 Desmond Christopher [address] [address] : 1960 Lab Order: TSH, free T4 Dx: E03.9 Hypothyroidism, unspecified Fasting [] Non-Fasting [x] Normal [x] Stat [] T BOAT OPERATOR * Letter - NADEEN Sheppard - 10/11/2017 12:00 AM CDT 10-11-2017 Desmond Christopher [address] [address] : 1960 Lab Order: Uric Acid Dx: M10.9 Gout, unspecified Fasting [] Non-Fasting [x] Normal [x] Stat [] T BOAT OPERATOR documented in this encounter Plan of Treatment Not on file documented as of this encounter Visit Diagnoses Not on filedocumented in this encounter Additional Health Concerns Infection Onset Date Last Indicated Resolved Time COVID-19 Rule Out 12/09/2019 12/09/2019 12/10/2019 3:36 PM CDT documented as of this encounter Care Teams Meatcutter Relationship Specialty Start Date End Date Mirella Adan PA [address] [place] [address] PCP - General PHYSICIAN LEAD QA ANALYST 02/22/18 documented as of this encounter
--- OUTSIDE RECORDS SUMMARY | 2024-09-18 09:36 | XMS_ITS | Clinical Summary ---
Author Organization [facility] Address [address] [facility] [address] [place] [address] Phone Care Team Providers Care Magazine Filler Name Role Phone Unavailable Primary Care Provider Unavailabl e Encounters Date Type Department Care Team Description 09/04/2024 External Device Data STL ABSTRACTION Provider, Abstract [...] Q 5 years 2005 INFLUENZA VACCINE (#1) 2024 12/09/2019, 2018 DTAP/TDAP/TD VACCINES (3 - Td or Tdap) 11/25/2032, 08/17/2012 RSV VACCINE (60+ or ) (1 - 1-dose 75+ series) 11/17/2035 ZOSTER VACCINE Completed 12/26/2018, 10/10/2018 Insurance BCBS BLUE ACCESS/TRUE BLUE PPO [facility] BLUE ACCESS CHOICE
--- NOTE | 2024-09-18 10:51 | ECG_ITS ---
Test Date: 2024-09-18 10:55:31 Measurements Intervals [place] Rate: 63 P: 34 WA: 176 QRS: -29 QRSD: 148 T: 10 QT: 417 QTc: 430 Interpretive Statements SINUS RHYTHM BORDERLINE LEFT AXIS DEVIATION [QRS AXIS < -20] RIGHT BUNDLE BRANCH BLOCK [120+ ms QRS DURATION, UPRIGHT V1, 40+ ms S IN I/aVL/V4/V5/V6] ABNORMAL ECG WARNING: DATA QUALITY MAY AFFECT INTERPRETATION No previous ECG available for comparison Electronically Signed On 09-19-2024 07:30:31 CDT by Star Zacarias M.D.
[2024-09-18 11:14] LABS: Hematocrit 45.6 % (42.0-52.0); Hemoglobin 15.1 g/dL (14.0-18.0); Immature Granulocyte Percent A 0.6 % (0-0.5); Lymphocytes Absolute Auto 2.30 K/mm3 (0.9-3.2); Mean Corpuscular HGB Conc 33.1 g/dl (32-36); Mean Corpuscular Hemoglobin 33.6 pg (26-34); Mean Corpuscular Volume 101.6 fl (80-100); Nucleated Red Blood Cells Absolute Auto 0.000 K/mm3 (0.0-0.012); Nucleated Red Blood Cells Perc 0.0 % (0.0-0.2); Platelet Count Result 168 k/mm3 (150-375); Red Blood Count 4.49 M/mm3 (4.6-6.20); White Blood Count 6.4 K/mm3 (4.5-10.0)
[2024-09-18 11:19] LABS: Add Urine Microscopic? YES; Appearance Urine Clear (Clear); Glucose Urine UA Negative (Negative); Leukocyte Esterase Ur Trace LEU/UL (Negative); Nitrate Urine Negative (Negative); Non Pathogenic Casts 0-2; Specific Grav Ur 1.007 (1.001-1.035)
[2024-09-18 11:24] LABS: Alanine Aminotransferase 32 U/L (6-50); Albumin Level 4.6 g/dL (3.5-5.1); Alkaline Phosphatase 57 U/L (38-126); Anion Gap 8 mmol/L (4-12); Aspartate Amino Transferase 38 U/L (17-59); Bilirubin,Total 0.5 mg/dL (0.2-1.3); Blood Urea Nitrogen 14 mg/dL (9-20); Calcium 9.7 mg/dL (8.4-10.2); Carbon Dioxide 30 mmol/L (22-30); Chloride 104 mmol/L (98-107); Estimated Glomerular Filt Rate > 60; Glucose 96 mg/dL (65-110); Potassium 4.6 mmol/L (3.4-5.0); Sodium 142 mmol/L (137-145); Total Protein 8.3 g/dL (6.3-8.2)
[2024-09-18 11:32] LABS: INR 1.0; Prothrombin Time 12.9 Seconds (11.1-14.7)
[2024-09-18 11:33] LABS: Partial Thromboplastin Time 31.1 Seconds (22.3-36.8)
== END 2024-09-18 09:32 | disposition home or self-care (01) ==
LOC: ANHSURGERY 09:34
PROVIDERS: Visit Provider Urology
DX: Z01.818 Encounter for other preprocedural examination (principal); R94.31 Abnormal electrocardiogram [ECG] [EKG]; C61 Malignant neoplasm of prostate
CPT/HCPCS: 36415; 71046; 80053; 81001; 85025; 85610; 85730; 86850; 86900; 86901; 93005

== ENCOUNTER 2024-09-28 16:17 | Observation (INO) | payer OTHER, SELFPAY ==
--- NOTE | 2024-09-06 08:38 | PM.IMHP ---
H&P: HPI History of Present Illness Date/Time: 09/06/24 08:38 Chief Complaint: Prostate cancer Narrative: 63 yo with original PSA was ng/dl (7.17) and his biopsy showed 3 of 13 cores with [place] score 6 and 4+3=7 adenocarcinoma. By National Comprehensive Cancer Network (NCCN) guidelines this is considered a unfavorable intermediate risk prostate cancer. Note for Prostate cancer: . 04/2024: ?PSA: 7.17 ?Biopsy at [facility]: 05/24 cores (LLA, LA, ROSA-LA), GGG-1 and GGG-3 ?- ?NCCN Unfavorable IR ?- ???Volume: 37gm ?+PNI and Cribriform Pattern ?- ?Decipher requested 05/2024: ?Decipher Prostate ?Decipher Score: 0.95 / High Risk (0-.45 Low Risk / .45-.60 Int. 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 He is aware the risks including, but not limited to, adverse cardiopulmonary events, rectal injury, urinary incontinence and erectile dysfunction Review of Systems Review of Systems: All systems reviewed & are unremarkable except as noted in HPI and below PMFSH Past Medical History Medical History (Updated 09/06/24 @ 08:40 by Rahul Dwyer MD) Quadriceps tendon rupture Obesity Hyperlipidemia HTN (hypertension) Social History Social History Smoking status: Never smoker Living arrangements: with family Spiritual care concerns: No Meds Home Medications and Allergies Home Medications ?Medication ?Instructions ?Recorded ?Confirmed ?Type allopurinol 300 mg tablet 300 mg PO DAILY 04/18/24 04/26/24 History cyanocobalamin (vitamin B-12) 1,000 mcg PO DAILY 04/18/24 04/26/24 History 1,000 mcg tablet,extended release (Vitamin B-12 ER) levothyroxine 150 mcg tablet 150 mcg PO DAILY 04/18/24 04/26/24 History lisinopril 20 mg tablet 20 mg PO DAILY 04/18/24 04/26/24 History rosuvastatin 5 mg tablet 5 mg PO HS 04/18/24 04/26/24 History Allergies Allergy/AdvReac Type Severity Reaction Status Date / Time No Known Allergies Allergy Verified 04/26/24 09:56 Exam Const: General: no acute distress Resp: Effort & Inspection: normal respiratory effort GI: Inspection: non-distended GI Palp: No abdominal tenderness and No Guarding due to palpation present (GI) Auscultation: normal bowel sounds Assessment and Plan Assessment and plan (1) Prostate cancer: Code(s): C61 - Malignant neoplasm of prostate Status: Acute Assessment and Plan: Robotic assisted radical prostatectomy with bilateral pelvic lymphadenectomy
[2024-09-18 09:47] VITALS: BP 151/92; PULSE 77; RESP 16; TEMP 37; O2SAT 97; BMI 36.7
--- NOTE | 2024-09-18 09:57 | PC.NURSE ---
Report to the Outpatient Waiting Room, entrance under the green pavilion located off [facility], at time ___6:00AM___ on date ___09/27/24____. Planned Procedure Time: ___7:30AM____.? Time changes happen often and if your time is changed the preop area will call you the afternoon before. - You and your visitor will be asked to self-screen and do not enter if you have any COVID symptoms. Please call surgeon if you need to reschedule. - A mask is optional within the hospital at this time. BOWEL PREP DAY BEFORE SURGERY PER DR ROTHMAN. Patients may have clear liquids (water, carbonated beverages, clear teas, apple juice) until 3 hours prior to surgery (4:30AM) with a maximum of 20 ounces. - No food from midnight until time of surgery and no smoking, or chewing tobacco (or any form of nicotine). No chewing gum, candy or mints. Take only the following medications with a SIP of water on the morning of surgery: ____LEVOTHYROXINE DO NOT STOP ANY OF YOUR OTHER PRESCRIPTION MEDICATIONS PRIOR TO SURGERY EXCEPT THE FOLLOWING Hold all vitamins and supplements for 3 days per anesthesiologist.- LAST DOSE 09/23/24 Medications to discontinue per physician __HOLD ASPIRIN 7 DAYS PRE-OP PER DR ROTHMAN Date to take last dose 09/19/24 Please no make-up, nail russian, hairspray, perfume, deodorant, or body powder the day of surgery.? No jewelry (including any body piercings) or valuables the day of surgery, leave them at home.? Please take a shower or bath the night before, or the morning of, surgery with an antibacterial soap.? Wear comfortable, loose fitting clothing.? - Jewelry must be removed prior to entering the operating room.? Rings and piercings that are not removed may be cut off. - The hospital will not accept responsibility for valuables.? - Please leave all valuables, including medications, at home the day of surgery. If you are going home after surgery, a licensed driver supervisor must drive you home.? - NO public transportation without another adult if you receive anesthesia. - We recommend that an adult stay with you for 24 hours following discharge. - We also recommend that you do not drive, make important decision, drink alcoholic beverages, or take any drugs that were not prescribed by your health care provider for at least 24 hours after your discharge time. Follow any additional instructions given to you from your surgeon. Telephone instructions given to ____PATIENT and asked if any additional questions and then verbalized understanding. Patient advised to call surgeon office or pre surgery nurse liaison [phone] if any additional questions.
[2024-09-27] VITALS (23 sets, daily range): BP systolic 127–224; BP diastolic 79–132; PULSE 87–114; RESP 10–18; TEMP 36.2–36.9; O2SAT 91–100
--- OUTSIDE RECORDS SUMMARY | 2024-09-27 01:15 | XMS_ITS | Clinical Summary ---
Author Organization [facility] Address [facility] [place] [address] Care Team Providers Care Painter Aircraft Name Role Phone Mirella Adan Primary Care Provider [phone] Allergies No known active allergies Medications aspirin [...] (12/07/2019): Added automatically from request for surgery [id number] Gout 08/17/2012 Hypothyroidism 08/17/2012 Overview (02/23/2018): slight tremor Obesity 08/17/2012 Resolved Problems Problem Noted Date Diagnosed Date Resolved Date Neck mass 02/06/2019 09/07/2021 Overview (02/06/2019): Added automatically from request for surgery [id number] Encounters Date Type Department Care Team Description 09/18/[address] [address] Mirella Adan PA Information 09/10/[address] [place] [address] Mirella Adan PA MRI Results 09/06/2024 1:55 PM CDT - 09/06/2024 11:59 PM CDT Hospital Encounter [facility] MRI [address] [facility] [place] [address] Portillo Hyatt, DO Discharge Disposition: Home or Self Care (Routine Discharge) 09/06/2024 Scan [email or web address] INFO SRVCS Scanned, [facility] 09/06/2024 Travel 09/03/2024 2:20 PM CDT Office Visit [address] [place] [address] Mirella Adan PA ER F/U (Left achilles tendon tear ) 09/03/2024 Travel 09/01/2024 2:01 PM CDT - 09/01/2024 3:19 PM CDT Emergency [facility] Emergency Room [address] [facility] [place] [place] [address] Enma Munoz MD Leg Injury Discharge Disposition: Home or Self Care (Routine Discharge) 09/01/2024 Travel 08/07/2024 [address]phone [address] [place] [address] Mirella Adan PA Refill Request (levothyroxin 150mg-- [...] of 1 - PCV) 2010 COVID-19 Vaccine ( - season) 2023 01/04/2022, 01/16/2021, 05/23/2020, Additional history exists PHQ-2 (Physician [place]) 03/14/2024 01/12/2024 Annual Physical 01/11/2025 01/12/2024, 11/12, [...] well visualized and is partially beyond the wyvfr-kg-nwcp. Mild intrinsic muscular atrophy. Ordered By: PORTILLO HYATT Interpreted By: Dwayne Crespo, 09/11/2024 10:36 AM Narrative 09/11/2024 10:47 AM CDT [facility] [address] [place] [address] EXAMINATION: MRI Left Ankle without Contrast EXAM [...] well visualized and is partially beyond the wcfwe-fl-ldtj. Sinus Tarsi: Within normal limits. Tendons: The [...] Procedure Note Dwayne Crespo MD - 09/11/2024 [facility] [place] [address] [address] EXAMINATION: MRI Left Ankle without Contrast EXAM [...] not well visualized and is partially beyond dwbpguzd-np-xgzb. Sinus Tarsi: Within normal limits. Tendons: The [...] well visualized and is partially beyond the ftjdp-ge-buut.Mild intrinsic muscular atrophy. Ordered By: PORTILLO HYATT [...] discussed: yes Risks discussed: Numbness and pain [place] protocol: Procedure explained and questions answered to patient or proxy's satisfaction: yes Patient identity confirmed: Verbally with patient Pre-procedure details: Distal neurologic exam: Normal Distal perfusion: distal pulses strong and brisk capillary refill Procedure details: Location: Leg Leg location: L lower leg Supplies: Prefabricated splint Post-procedure details: Distal neurologic exam: Normal Distal perfusion: unchanged Procedure completion: Tolerated well, no immediate complications Enma Munoz MD PROCEDURE/MINOR SURGICAL ORD ERABLES Final Result * XR ANKLE RT M3V (09/01/2024 2:42 PM CDT) Anatomical Region Laterality Modality Ankle Radiographic Fannie ging 09/01/2024 2:43 PM CDT Impressions 09/01/2024 2:46 PM CDT IMPRESSION: 1. No acute findings. 2. Calcaneal spurs. 3. Calcific Achilles tendinopathy. Referred By: Interpreted By: Bill Manrique MD, 09/01/2024 2:43 PM Narrative 09/01/2024 2:46 PM CDT [facility] [address] [place] [address] Examination: Right ankle. Exam time: 1431 hours. [...] Procedure Note Bill Manrique MD - 09/01/2024 [facility] [address] [place] [address] Examination: Right ankle. Exam time: 1431 hours. [...] Result * HEP C SCANNED ORDERS (12/08/2022) us [facility] Scanned SCANNING Final Resu lt [facility] ONBASE from Last 3 Months or Most Recently Relevant to Health Maintenance Insurance [employer] Care Teams Painter Aircraft Relationship Specialty Start Date End Date Mirella Adan PA [address] [place] [address] PCP - General PHYSICIAN WELT TRIMMING MACHINE OPERATOR 02/22/18
--- OUTSIDE RECORDS SUMMARY | 2024-09-27 01:15 | XMS_ITS | Encounter Summary ---
Author Organization [facility] Address [address] [place] [address] Care Team Providers Care Lock Tender Name Role Phone Mirella Adan Primary Care Provider [phone] Encounter Details Date Type Department Care Team ([facility] st Contact Info) Description 01/18/2024 [employer] Message [facility] [address] [place] [address] [employer] [facility] [employer] Provider CT scan Social History Tobacco Use [...] documented as of this encounter Care Teams Lock Tender Relationship Specialty Start Date End Date Mirella Adan PA [address] [place] [address] PCP - General PHYSICIAN FUEL STORAGE TECHNICIAN 02/22/18 documented as of this encounter
--- OUTSIDE RECORDS SUMMARY | 2024-09-27 01:15 | XMS_ITS | Clinical Summary ---
Author Organization [facility] Address [address] [place] [address] Phone Care Team Providers Care Cdl Truck Driver Name Role Phone Mirella Adan Primary Care Provider [phone] Allergies No known active allergies Medications allopurinol [...] (09/11/2024): Added automatically from request for surgery [id number] Gout 08/17/2012 Hypothyroidism 08/17/2012 Overview (09/11/2024): slight tremor Obesity 08/17/2012 Encounters Date Type Department Care Team Description 09/11/2024 1:00 PM CDT Office Visit [facility] [address] [place] [address] Nadya Sarmiento, RN BUILDING, CYTOTECHNOLOGIST/CYTOLOGY SUPERVISOR Achilles tendon rupture, left, subsequent encounter (Primary [...] patient's age to complete this topic Insurance [facility] Care Teams Cdl Truck Driver Relationship Specialty Start Date End Date Mirella Adan PA [address] [place] [id number] PCP - General Physician Appeals Analyst 09/11/24
--- OUTSIDE RECORDS SUMMARY | 2024-09-27 01:15 | XMS_ITS | Encounter Summary ---
Author Organization [facility] Address [facility] [place] [address] Care Team Providers Care Cotton Tipper Name Role Phone Mirella Adan Primary Care Provider [phone] Encounter Details Date Type Department Care Team ([facility] st Contact Info) Description 10/11/2017 Abstract [facility] Mirella Adan PA [address] [place] [address] Social History Tobacco Use Types Packs/Day Years Used Date Smoking Tobacco: Never Assessed Sex and Gender Information Value Date Recorded Sex Assigned at Not on file Legal Sex Male 6:55 PM CDT Gender Identity Not on file Sexual Orientation Not on file documented as of this encounter Miscellaneous Notes * Letter - ANDEEN Sheppard - 10/11/2017 12:00 AM CDT 10-11-2017 Desmond Christopher [address] [address] : 1960 Lab Order: TSH, free T4 Dx: E03.9 Hypothyroidism, unspecified Fasting [] Non-Fasting [x] Normal [x] Stat [] CAMERA OPERATOR * Letter - NADEEN Sheppard - 10/11/2017 12:00 AM CDT 10-11-2017 Desmond Christopher [address] [address] : 1960 Lab Order: Uric Acid Dx: M10.9 Gout, unspecified Fasting [] Non-Fasting [x] Normal [x] Stat [] CAMERA OPERATOR documented in this encounter Plan of Treatment Not on file documented as of this encounter Visit Diagnoses Not on filedocumented in this encounter Additional Health Concerns Infection Onset Date Last Indicated Resolved Time COVID-19 Rule Out 12/09/2019 12/09/2019 12/10/2019 3:36 PM CDT documented as of this encounter Care Teams Cotton Tipper Relationship Specialty Start Date End Date Mirella Adan PA [address] [place] [address] PCP - General PHYSICIAN VEHICLE DYNAMICS ENGINEER 02/22/18 documented as of this encounter
--- OUTSIDE RECORDS SUMMARY | 2024-09-27 01:15 | XMS_ITS | Clinical Summary ---
Author Organization [facility] Address [address] [facility] [id number] [place] [address] Phone Care Team Providers Care Care Transition Coordinator Name Role Phone Unavailable Primary Care [...] 10/10/2018 Insurance BCBS BLUE ACCESS/TRUE BLUE PPO [facility] BLUE ACCESS CHOICE
--- OUTSIDE RECORDS SUMMARY | 2024-09-27 01:15 | XMS_ITS | Encounter Summary ---
Author Organization [facility] Address [address] [place] [address] Care Team Providers Care Nurse Recruiter Name Role Phone Mirella Adan Primary Care Provider [phone] Encounter Details Date Type Department Care Team (Late st Contact Info) Description 12/07/2019 Prep for Procedure [facility] [address] [place] [address] Rinku Arguello MD [address] [address] Social History Tobacco Use Types [...] DETECTED NOT DETECTED 12/10/2019 3:35 PM CDT [facility] Comment: A Not Detected (negative) test [...] providers and patients using the following websites: https://www.[employer].com/home/Covid-19/HCP/QuestIVD/fact- sheet.html https://www.[employer].Medicalis/home/Covid-19/Patients/ QuestIVD/fact-sheet.html This test has been authorized by the FDA under an Emergency Use Authorization (EUA) for use by authorized laboratories. Due to the current public health emergency, [employer] is receiving a high volume of samples [...] about COVID-19 can be found at the [employer] website: www.[facility].Medicalis/Covid19. Test performed at [facility] [address] [address] Director: JENISE WHEAT DO,MPH FIRST TEST YES 12/09/2019 1:00 PM CDT [facility] EMPLOYED IN HEALTHCARE NO 12/09/2019 1:00 PM CDT [facility] SYMPTOMATIC DEFINED BY CDC NO 12/09/2019 1:00 PM CDT [facility] DATE OF SYMPTOM ONSET UNKNOWN 12/09/2019 1:24 PM CDT [facility] HOSPITALIZATION STATUS NO 12/09/2019 1:00 PM CDT [facility] PATIENT IN ICU NO 12/09/2019 1:00 PM CDT [facility] RESIDENT OF [facility] NO 12/09/2019 1:00 PM CDT [facility] NO 12/09/2019 1:24 PM CDT [facility] PATIENT'S RACE WHITE OR 12/09/2019 1:00 PM CDT [facility] ETHNICITY NONHISPANIC 12/09/2019 1:00 PM CDT [facility] SOURCE (QST) NASOPHARYNGEAL SWAB 12/09/2019 1:00 PM CDT [facility] NASOPHARYNGEAL SWAB / Unknown 12/09/2019 1:20 PM CDT us Rinku Arguello MD MICROBIOLOGY - GENERAL ORDERABLE S Final Result [facility] [address] [place] [address], [facility] [address] [facility] [place] [address], documented in this encounter Visit Diagnoses Diagnosis Preop testing- Primary Preoperative examination, unspecified documented in this encounter Additional Health Concerns Infection Onset Date Last Indicated Resolved Time COVID-19 Rule Out 12/09/2019 12/09/2019 12/10/2019 3:36 PM CDT documented as of this encounter Care Teams Nurse Recruiter Relationship Specialty Start Date End Date Mirella Adan PA [address] [place] [address] PCP - General PHYSICIAN DISPENSING LEAD 02/22/18 documented as of this encounter
--- NOTE | 2024-09-27 05:02 | WPDHPUPDATE1 ---
History and Physical Update Update Date/Time: 09/27/24 05:02 History and Physical has been reviewed, including an updated exam of the patient. There are NO changes in the patient's condition. Risks, benefits, and alternatives have been discussed and questions answered. Patient agrees to proceed with procedure.
[2024-09-27] MEDS: LACTATED RINGERS 1,000 ML 30 ML IV CONT ×3 (06:45→13:21)
--- NOTE | 2024-09-27 07:28 | WPDANESEPPF ---
Anes - Initial Pre Proc Eval Procedure: Operation Date: 09/27/24 07:30 Proposed Procedures p Robotic Assisted Laparoscopic Prostatectomy, Possible Bilateral Pelvic Lymph Node Dissection - Rahul Dwyer MD Date/Time: 09/27/24 07:28 Surgeon: Rahul Dwyer MD Pre Op Diagnosis: prostate CA Patient Data Age: 63 Gender: M Height: 1.91 m Weight: 133.4 kg Last Vital Signs Temp 98.6 F 09/18/24 09:47 Pulse 77 09/18/24 09:47 Resp 16 09/18/24 09:47 BP 151/92 H 09/18/24 09:47 Pulse Ox 97 09/18/24 09:47 O2 Del Method Room Air 09/18/24 09:47 Allergies Allergy/AdvReac Type Severity Reaction Status Date / Time No Known Allergies Allergy Verified 09/18/24 09:42 Home Medications ?Medication ?Instructions ?Recorded ?Confirmed ?Type allopurinol 300 mg tablet 300 mg PO DAILY 04/18/24 09/18/24 History cyanocobalamin (vitamin B-12) 1,000 mcg PO DAILY 04/18/24 09/18/24 History 1,000 mcg tablet,extended release (Vitamin B-12 ER) levothyroxine 150 mcg tablet 150 mcg PO DAILY 04/18/24 09/18/24 History lisinopril 20 mg tablet 20 mg PO DAILY 04/18/24 09/18/24 History rosuvastatin 5 mg tablet 5 mg PO QAM 04/18/24 09/18/24 History aspirin 81 mg tablet,delayed 81 mg PO DAILY 09/18/24 09/18/24 History release (Adult Low Dose Aspirin) celecoxib 200 mg capsule 200 mg PO Q24H PRN pain 09/18/24 09/18/24 History cetirizine 10 mg capsule (All Day 10 mg PO DAILY PRN allergy symptoms 09/18/24 09/18/24 History Allergy (cetirizine)) Patient hx anesthesia problems: none Family hx anesthesia problems: none Results Review: All pre-operative results and documents have been reviewed as part of the pre-operative evaluation. [facility] Past Medical History Medical History (Updated 09/06/24 @ 08:40 by Rahul Dwyer MD) Quadriceps tendon rupture Obesity Hyperlipidemia HTN (hypertension) Social History Social History Smoking status: Never smoker Living arrangements: with family Spiritual care concerns: No Anes - Eval Final PreProcedure Day of Procedure 09/27/24 07:28 Patient weight: obese Heart: regular rate and rhythm Lungs: clear to auscultation Airway: Mallampati scale class III Neurological: alert and oriented Last oral intake: >/= 8 hours ASA classification: III Emergent: no Anesthetic plan: proceed Anesthesia type and monitoring: general ETT and standard monitoring Results Review: All pre-operative results and documents have been reviewed as part of the pre-operative evaluation. Informed Consent: The patient's anesthetic plan and its attendant risks and benefits were discussed with the patient/family/POA. Questions were solicited and answers provided to the satisfaction of the patient/family/POA.
[2024-09-27] MEDS: ceFAZolin 3 GM/D5W 100 ML 100 ML IVPB (07:35)
--- NOTE | 2024-09-27 07:46 | SUR.PREOP ---
0700: DR. ROTHMAN AWARE PT DID NOT PERFORM A BOWEL PREP PRIOR TO SURGERY. OK TO PROCEED.
[2024-09-27 08:07] LABS: Hematocrit 45.0 % (42.0-52.0); Hemoglobin 14.8 g/dL (14.0-18.0); Immature Granulocyte Percent A 0.3 % (0-0.5); Lymphocytes Absolute Auto 2.35 K/mm3 (0.9-3.2); Mean Corpuscular HGB Conc 32.9 g/dl (32-36); Mean Corpuscular Hemoglobin 33.6 pg (26-34); Mean Corpuscular Volume 102.3 fl (80-100); Nucleated Red Blood Cells Absolute Auto 0.000 K/mm3 (0.0-0.012); Nucleated Red Blood Cells Perc 0.0 % (0.0-0.2); Platelet Count Result 142 k/mm3 (150-375); Red Blood Count 4.40 M/mm3 (4.6-6.20); White Blood Count 6.7 K/mm3 (4.5-10.0)
--- NOTE | 2024-09-27 10:32 | S_PTH ---
PATIENT: Desmond Christopher LOC: [id number] U#:[id number] AGE/SX: 63/M ROOM: 242 RE09/28/[address]: Rahul Dwyer MD : 1960 BED: 01 DIS: 09/28/2024 SPEC #: [id number] RECD: 09/27/24 13:51 STATUS: FELISA REBridget #: [id number] CHAS: 09/27/24 10:[address]: Rahul Dwyer DEPT: [facility] Surgical RECD BY: Jessica Lang Tissues: A - Prostate B - Lymph Node C - Lymph Node Procedures: Hematoxylin and Eosin Stain Gross and Microscopic Level 4 Gross and Microscopic Level 6
--- NOTE | 2024-09-27 12:23 | P.OP_ITS ---
Procedure Note - Detailed Date of Procedure 09/27/24 Pre-op Diagnosis Prostate CA Post-op Diagnosis Same Procedure Performed Robotic-assisted radical prostatectomy, bilateral pelvic lymphadenectomy Surgeon Rahul Dwyer MD Anesthesia General Description of Procedure The patient was brought to the operative suite, where he was prepped and draped in routine sterile fashion while in a dorsal lithotomy, deep Trendelenburg position. A supraumbilical 10 mm trocar was placed after insufflation of the abdomen with a Veress needle. Three robotic ports were then placed under direct vision. Two of these were placed in the right lower quadrant - 10 cm and 20 cm lateral to, and in line with, the umbilicus. A third robotic trocar was placed 10 cm to the left of the umbilicus, and 20 cm to the left of the umbilicus, a 12 mm standard laparoscopic trocar was placed to be used as an social services assistant port. Lastly, a 5 mm trocar was placed in the left upper quadrant midway between the umbilicus and the left robotic trocar. Attention was then turned to the prostatectomy. I opted for a posterior approach in this patient. An incision was made in the parietal peritoneum along the posterior bladder/posterior prostate about 2 cm above the reflection of the peritoneum over the anterior rectum. The seminal vesicles and vas deferens were immediately identified. Dissection is undertaken in a fashion so as to avoid electrocautery as much as possible, particularly near the tips of the seminal vesicles. Dissection was also carried out in the midline so as to avoid any encounters with the ureters. The vas deferens and the seminal vesicles were dissected in their entirety to the base of the prostate. The plane anterior to Denoviller's fascia, anterior to the rectum and posterior to the prostate was then developed. I then dropped the bladder by incising the anterior parietal peritoneum just lateral to the median umbilical ligaments bilaterally. The bladder was dropped from the anterior abdominal and pelvic wall. The endopelvic fascia was identified and incised bilaterally, allowing for dissection of the posterior- lateral aspect of the prostate. The puboprostatic ligaments were transected near their origin from the posterior pubic ramus. This posterior lateral dissection of the prostate is also undertaken in a fashion so as to avoid electrocautery as much as possible. The dorsal vein of the penis is then secured with an 0 -Vicryl ligature. Attention is then turned to the bladder neck. The anterior bladder neck is incised at the vesico-prostatic junction. The previously placed urethral catheter was drawn through the urethrotomy. A very small bladder neck was maintained throughout the remainder of this dissection. The posterior bladder neck was incised in a fashion so as to avoid any injury to the ureteral orifices. Again, the small aperture of the bladder neck was maintained. The previously dissected vas deferens and the seminal vesicles were brought through the posterior bladder neck incision. The lateral prostatic pedicles were then carefully dissected from the lateral aspect of the prostate bilaterally. The prostatic pedicles were secured with Weck clips and transected. The neurovascular bundles were carefully dissected from the posterior-lateral aspect of the prostate. The dorsal vein of the penis was incised with electrocautery. Using cold scissors, the urethra was incised. After withdrawing the previously placed urethral catheter, the posterior urethra was sharply incised, as was the rectalurethralis muscle. Attention was then turned to an extended bilateral pelvic lymphadenectomy. The limits of this dissection were similar bilaterally. Specifically, the limits were the bifurcation of the common iliac vein proximally, the William's ligament distally, the pevic floor posteriorly. the pelvic sidewall laterally and the anterior aspect to the external iliac artery laterally. This dissection was undertaken with care to avoid any injury to the obturator nerve. The prostate, seminal vesicles and pelvic nodes were then placed in a specimen bag. The pelvis was copiously irrigated with saline. Urethrovesical anastomosis was then undertaken using similar two 3-0 V-lock sutures across a 20-Serbian urethral catheter. The catheter was irrigated, and there was found to be no evidence of an irrigant extravasation. I opted not to place a pelvic drain. The robot is undocked, and the trocars were removed. The specimen was removed through the supraumbilical incision. The anterior rectus fascia at that suprapubic site was closed with a looped 0-PDS. Subcutaneous tissue was irrigated. Skin incisions were closed with 4-0 Vicryl subcuticular. Blood loss throughout this was 150cc. The patient tolerated the procedure well, was taken to recovery room in good condition. Drains Yes (18F Mcneil) Pathology Yes Complications No immediate complications Disposition PACU
[2024-09-27] MEDS: fentaNYL CITRATE INJ (*CRX) 100 MCG/2 ML VIAL 25 MCG IV PUSH ×4 (12:40→14:07)
[2024-09-27] MEDS: HYOSCYAMINE SULFATE 0.125 MG TABLET PO (13:33)
--- NOTE | 2024-09-27 15:20 | ADMGEN ---
This patient, Desmond Christopher, was admitted to Medical Room 242-. Patient/family oriented to hospital policies and general routines including ID bracelet, bed and alarms, visiting hours, pain management, procedures, bathroom and other care routines, personal items, smoking policy, room service/diet, and visiting hours. Information on how to activate the Rapid Response Team has been discussed. Patient/Family are encouraged to report perceived risks to care and to ask questions if they do not understand what they are told or what they should do.
[2024-09-27] MEDS: KETOROLAC 30 MG/ML VIAL (*BKC) IV PUSH ×2 (15:27→21:32)
[2024-09-27] MEDS: LACTATED RINGERS 1,000 ML 125 ML IV CONT ×2 (15:29→23:29)
[2024-09-27] MEDS: TAMSULOSIN HCL 0.4 MG CAPSULE PO (16:00)
[2024-09-27 16:11] LABS: INR 1.0; Partial Thromboplastin Time 30.2 Seconds (22.3-36.8); Prothrombin Time 13.7 Seconds (11.1-14.7)
[2024-09-27 16:12] LABS: Alanine Aminotransferase 32 U/L (6-50); Albumin Level 4.2 g/dL (3.5-5.1); Alkaline Phosphatase 57 U/L (38-126); Anion Gap 11 mmol/L (4-12); Aspartate Amino Transferase 35 U/L (17-59); Bilirubin,Total 0.4 mg/dL (0.2-1.3); Blood Urea Nitrogen 18 mg/dL (9-20); Calcium 8.9 mg/dL (8.4-10.2); Carbon Dioxide 25 mmol/L (22-30); Chloride 104 mmol/L (98-107); Estimated CRCL calculation 91 ml/min; Estimated Glomerular Filt Rate > 60; Glucose 140 mg/dL (65-110); Potassium 4.7 mmol/L (3.4-5.0); Sodium 140 mmol/L (137-145); Total Protein 7.4 g/dL (6.3-8.2)
[2024-09-27] MEDS: MORPHINE SULFATE (*CRX) 2 MG/ML INJ 1 MG IV PUSH (19:26)
--- NOTE | ~2024-09-28 | XR_ITS ---
XR chest 1V portable Ordering provider: Matt Murray MD History: 63 years Male with . Short of breath; low sats . Comparison: September 18, 2024 FINDINGS: MEDIASTINUM: The cardiac silhouette is slightly enlarged. Congestive екатерина. LUNGS: No effusions or pneumothorax. Opacification in the left lung base medially. Opacification in t he left costophrenic angle. OTHER: No free air under the diaphragm. Degenerative changes of the spine with dextroscoliosis. IMPRESSION: Left basilar atelectasis versus pneumonia. Reviewed, dictated and finalized at location A.
[2024-09-28 00:30] VITALS: BP 104/66; PULSE 74; RESP 18; TEMP 37.2; O2SAT 95
[2024-09-28] MEDS: KETOROLAC 30 MG/ML VIAL (*BKC) IV PUSH ×2 (03:14→08:58)
[2024-09-28 04:30] VITALS: BP 122/65; PULSE 91; RESP 18; TEMP 36.5; O2SAT 98
[2024-09-28 05:07] LABS: Hematocrit 36.0 % (42.0-52.0); Hemoglobin 11.5 g/dL (14.0-18.0)
[2024-09-28 05:29] LABS: Anion Gap 8 mmol/L (4-12); Blood Urea Nitrogen 17 mg/dL (9-20); Calcium 8.7 mg/dL (8.4-10.2); Carbon Dioxide 27 mmol/L (22-30); Chloride 103 mmol/L (98-107); Estimated CRCL calculation 100 ml/min; Estimated Glomerular Filt Rate > 60; Glucose 118 mg/dL (65-110); Potassium 4.6 mmol/L (3.4-5.0); Sodium 138 mmol/L (137-145)
[2024-09-28] MEDS: LEVOTHYROXINE SODIUM 150 MCG TABLET PO (05:54)
[2024-09-28] MEDS: HYOSCYAMINE SULFATE 0.125 MG TABLET SUBLINGUAL (06:01)
--- NOTE | 2024-09-28 06:44 | WPDUROPN2 ---
Progress Note: A&P Assessment and Plan (1) Prostate cancer: Code(s): C61 - Malignant neoplasm of prostate Status: Acute Assessment and Plan: Doing well POD #1 s/p RALP. Increase diet/ambulation today. Anticipate discharge this afternoon. Subjective Subjective Date/Time Seen: 09/28/24 06:44 Interval history: NAEO, slept well / reports moderate abdominal bloating Review of Systems Cardiovascular: Cardiovascular: Denies chest pain, Denies lightheadedness, Denies palpitations and Denies dyspnea Respiratory: Respiratory: Denies dyspnea Gastrointestinal: Gastrointestinal: Reports bloating, Denies diarrhea, Denies nausea and Denies vomiting Genitourinary: Genitourinary: Denies hematuria and Denies dysuria Endocrine: Endocrine: Denies palpitations Exam Const: General: no acute distress Resp: Effort & Inspection: normal respiratory effort GI: Inspection: non-distended GI Palp: No abdominal tenderness and No Guarding due to palpation present (GI) Auscultation: normal bowel sounds Other: Incisions clean and dry Urinary Catheter: Urinary Catheter: patent and draining and urine clear Objective Data Vital Signs Vital Signs: Vital Signs - 24 hr 09/27/24 07:42 09/27/24 12:03 09/27/24 12:15 Temperature 98.1 F 97.1 F L Pulse Rate 94 91 93 Respiratory Rate 16 10 L 15 Blood Pressure 129/79 129/83 198/125 H Pulse Oximetry 97 99 100 Oxygen Delivery Room Air Simple Face Mask Simple Face Mask Oxygen Flow Rate 10 10 09/27/24 12:17 09/27/24 12:30 09/27/24 12:45 Temperature Pulse Rate 98 104 H 110 H Respiratory Rate 18 18 18 Blood Pressure 155/97 H 224/132 H 212/122 H Pulse Oximetry 100 96 91 Oxygen Delivery Simple Face Mask Simple Face Mask Nasal Cannula Oxygen Flow Rate 10 10 2 09/27/24 13:00 09/27/24 13:15 09/27/24 13:23 Temperature Pulse Rate 110 H 114 H 109 H Respiratory Rate 16 16 Blood Pressure 180/132 H 165/121 H Pulse Oximetry 91 92 Oxygen Delivery Nasal Cannula Nasal Cannula Oxygen Flow Rate 2 2 09/27/24 13:30 09/27/24 13:45 09/27/24 13:46 Temperature Pulse Rate 95 94 93 Respiratory Rate 12 14 Blood Pressure 175/127 H 157/105 H Pulse Oximetry 94 96 Oxygen Delivery Room Air Nasal Cannula Oxygen Flow Rate 2 09/27/24 14:00 09/27/24 14:15 09/27/24 14:35 Temperature Pulse Rate 88 88 87 Respiratory Rate 14 14 14 Blood Pressure 157/106 H 142/91 H 143/96 H Pulse Oximetry 96 96 96 Oxygen Delivery Nasal Cannula Nasal Cannula Nasal Cannula Oxygen Flow Rate 2 2 2 09/27/24 15:15 09/27/24 15:30 09/27/24 16:00 Temperature 97.9 F 98.1 F 98 F Pulse Rate 99 91 96 Respiratory Rate 18 18 18 Blood Pressure 155/96 H 139/96 H 141/89 H Pulse Oximetry 97 98 98 Oxygen Delivery Oxygen Flow Rate 09/27/24 16:26 09/27/24 17:00 09/27/24 20:28 Temperature 98.5 F Pulse Rate 87 95 Respiratory Rate 14 18 Blood Pressure 127/92 H Pulse Oximetry 96 97 95 Oxygen Delivery Nasal Cannula Nasal Cannula Oxygen Flow Rate 2 2 09/27/24 20:30 09/27/24 21:20 09/28/24 00:30 Temperature 98.3 F 98.9 F Pulse Rate 101 H 74 Respiratory Rate 18 18 Blood Pressure 146/86 H 104/66 Pulse Oximetry 95 95 95 Oxygen Delivery Nasal Cannula Oxygen Flow Rate 1 09/28/24 04:30 Temperature 97.7 F Pulse Rate 91 Respiratory Rate 18 Blood Pressure 122/65 Pulse Oximetry 98 Oxygen Delivery Oxygen Flow Rate Intake/Output Intake/Output: Intake & Output 09/25/24 09/26/24 09/27/24 09/28/24 23:59 23:59 23:59 23:59 Intake Total 2340 Output Total 150 1300 Balance 2190 -1300 Meds/Results Medications: Active Medications Generic Name Dose Route Start Last Admin Trade Name Freq PRN Reason Stop Dose Admin Allopurinol 300 mg 09/28/24 09:00 Allopurinol 300 Mg Tablet PO DAILY JUVE Hyoscyamine 0.125 mg 09/27/24 14:45 09/28/24 06:01 Hyoscyamine Sulfate 0.125 Mg Tablet SUBLINGUAL 0.125 mg Q4H PRN Administration Bladder Spasm Lactated Ringer's 1,000 mls @ 125 mls/hr 09/27/24 14:45 09/27/24 23:29 Lr - Lactated Ringers Iv IV CONT 125 mls/hr .Q8H JUVE Administration Ketorolac Tromethamine 30 mg 09/27/24 14:45 09/28/24 03:14 Ketorolac 30 Mg/Ml Vial (*Bkc) IV PUSH 09/28/24 14:44 30 mg Q6H PRN Administration Pain Rated 4-6 Levofloxacin 500 mg 09/28/24 09:00 Levofloxacin 500 Mg Tablet PO DAILY JUVE Levothyroxine Sodium 150 mcg 09/28/24 06:30 09/28/24 05:54 Levothyroxine Sodium 150 Mcg Tablet PO 150 mcg DAILY@0630 [facility] Administration Lisinopril 20 mg 09/28/24 09:00 Lisinopril 20 Mg Tablet PO DAILY JUVE Loratadine 10 mg 09/27/24 15:03 Loratadine 10 Mg Tablet PO DAILY PRN allergy symptoms Morphine Sulfate 1 mg 09/27/24 14:45 09/27/24 19:26 Morphine Sulfate (*Crx) 2 Mg/Ml Inj IV PUSH 1 mg Q2H PRN Administration Pain Rated 7-10 Naloxone HCl 0.1 mg 09/27/24 14:45 Naloxone Hcl 0.4 Mg/Ml Vial IV PUSH Q2M PRN Opiate Reversal Rosuvastatin Calcium 5 mg 09/28/24 09:00 Rosuvastatin 5 Mg Tablet PO QAM [facility] Radiology Results: ITS Impressions Chest X-Ray 09/27/24 13:22 IMPRESSION: Left basilar atelectasis versus pneumonia. Labs Labs: Laboratory Results - last 24 hr 09/27/24 09/27/24 09/28/24 07:07 15:44 04:47 WBC 6.7 RBC 4.40 L Hgb 14.8 11.5 L D Hct 45.0 36.0 L MCV 102.3 H MCH 33.6 MCHC 32.9 RDW 12.7 Plt Count 142 L MPV 11.7 H Immature Gran % (Auto) 0.3 Neut % (Auto) 50.3 Lymph % (Auto) 34.9 Labette % (Auto) 10.5 H Eos % (Auto) 3.3 Baso % (Auto) 0.7 Lymph # (Auto) 2.35 Labette # (Auto) 0.7 H Eos # (Auto) 0.2 Baso # (Auto) 0.1 Abs Immat Gran (auto) 0.02 Absolute Neuts (auto) 3.4 Absolute Nucleated RBC 0.000 Nucleated RBC % 0.0 PT 13.7 INR 1.0 APTT 30.2 Sodium 140 138 Potassium 4.7 4.6 Chloride 104 103 Carbon Dioxide 25 27 Anion Gap 11 8 BUN 18 17 Creatinine 1.07 0.97 Estim Creat Clear Calc 91 100 Estimated GFR > 60 > 60 Glucose 140 H 118 H Calcium 8.9 8.7 Total Bilirubin 0.4 AST 35 ALT 32 Alkaline Phosphatase 57 Total Protein 7.4 Albumin 4.2 Blood Type O Positive Antibody Screen Negative
[2024-09-28] MEDS: LACTATED RINGERS 1,000 ML 125 ML IV CONT (08:21)
[2024-09-28] MEDS: ROSUVASTATIN 5 MG TABLET PO (08:22)
[2024-09-28 08:30] VITALS: BP 125/57; PULSE 90; RESP 16; O2SAT 96
[2024-09-28 12:08] VITALS: O2SAT 94
[2024-09-28 12:30] VITALS: BP 95/64; PULSE 121; RESP 18; O2SAT 97
--- NOTE | 2024-09-28 12:36 | WPDANESPN ---
Anes - Prog Note Post-Op Date/Time: 09/28/24 12:36 Cardiovascular status: normal Respiratory status: normal Airway patency: baseline Mental status: baseline Post-Op hydration status: normal Vital Signs: Last Vital Signs Temp 36.5 C 09/28/24 04:30 Pulse 90 09/28/24 08:30 Resp 16 09/28/24 08:30 BP 125/57 L 09/28/24 08:30 Pulse Ox 94 09/28/24 12:08 O2 Del Method Room Air 09/28/24 12:08 O2 Flow Rate 1 09/27/24 21:20 Pain Score (VAS): 2 I/O: Intake & Output 09/27/24 09/28/24 09/28/24 23:59 07:59 15:59 Intake Total 1240 1000 240 Output Total 1300 Balance 1240 -300 240 Laboratory Tests 09/28/24 04:47 09/28/24 04:47 09/27/24 09/28/24 15:44 04:47 Hgb 11.5 L D Hct 36.0 L PT 13.7 INR 1.0 APTT 30.2 Sodium 140 138 Potassium 4.7 4.6 Chloride 104 103 Carbon Dioxide 25 27 Anion Gap 11 8 BUN 18 17 Creatinine 1.07 0.97 Estim Creat Clear Calc 91 100 Estimated GFR > 60 > 60 Glucose 140 H 118 H Calcium 8.9 8.7 Total Bilirubin 0.4 AST 35 ALT 32 Alkaline Phosphatase 57 Total Protein 7.4 Albumin 4.2 Blood Type O Positive Antibody Screen Negative Post-procedural complaints: none Patient Feedback: Patient satisfied with anesthetic care.
--- NOTE | 2024-09-28 16:25 | PM.DS ---
DS: Admitting Diagnosis Discharge Date 09/28/24 Admitting Diagnosis Prostate cancer DS: Discharge Diagnosis Discharge Diagnosis (1) Prostate cancer: Code(s): C61 - Malignant neoplasm of prostate Status: Acute DS: Summary Hospital Course Hospital Course: This patient was admitted on the morning of his planned robotic prostatectomy. This procedure was uneventful, as was his postoperative course. By the evening of the procedure he was sitting at the bedside in tolerating a liquid diet. The following morning he was ambulating freely and tolerating regular food. His catheter drainage remained essentially clear throughout. His postoperative hemoglobin and serum creatinine were unremarkable. At the time of discharge he has been instructed in appropriate care for his Mcneil catheter with both a leg bag and bedside bag. He will be discharged with plans to follow-up in 1 week with a cystogram. Time Spent with Patient Time attestation: Total time spent providing and/or coordinating discharge services: DS: Data Data Completed and Pending Pending studies at discharge: Pending at discharge 09/27/24 10:32 Surgical [PTH] Routine Labs on day of discharge: Labs from last 24 hours 09/28/24 09/27/24 04:47 15:44 Hgb 11.5 L D Hct 36.0 L Sodium 138 Potassium 4.6 Chloride 103 Carbon Dioxide 27 Anion Gap 8 BUN 17 Creatinine 0.97 Estim Creat Clear Calc 100 Estimated GFR > 60 Glucose 118 H Calcium 8.7 Antibody Screen Negative Discharge Plan Discharge Attending physician on discharge: Rahul Dwyer Discharging Clinician: Rahul Dwyer Patient Disposition: Home Activity: other - see discharge instructions Diet: other - see discharge instructions Wound Care Instructions: other - see discharge instructions Discharge Instructions: 1) Mcneil catheter -> leg bag / bedside bag at night. 2) No lifting/straining >15lbs. x3 weeks. 3) No driving x1-week. 4) Resume normal, pre-operative diet. 5) My office will contact regarding follow-up in 1-week with cystogram. Patient Language: Bulgarian Stand Alone Forms: General Discharge Instructions Follow-up/Referrals: Rahul Dwyer MD [Physician] - Discharge Medications: New cefdinir 300 mg capsule 300 mg PO Q12H Qty: 6 0RF Rx Instructions: First dose Friday 09/29am hydrocodone-acetaminophen 5-325 mg tablet 1 - 2 tablet PO Q6H PRN (Reason: pain) Qty: 20 0RF hyoscyamine sulfate 0.125 mg tablet 0.125 mg PO Q6H PRN (Reason: bladder spasms) Qty: 20 2RF docusate sodium [Colace] 100 mg capsule 100 mg PO DAILY Qty: 30 0RF Continued All Day Allergy (cetirizine) 10 mg capsule 10 mg PO DAILY PRN (Reason: allergy symptoms) rosuvastatin 5 mg tablet 5 mg PO QAM levothyroxine 150 mcg tablet 150 mcg PO DAILY Patient Comments: QAM lisinopril 20 mg tablet 20 mg PO DAILY Patient Comments: QAM allopurinol 300 mg tablet 300 mg PO DAILY Held celecoxib 200 mg capsule 200 mg PO Q24H PRN (Reason: pain) Hold Instructions: Resume on 09/29/24. aspirin [Adult Low Dose Aspirin] 81 mg tablet,delayed release (DR/EC) 81 mg PO DAILY Hold Instructions: Resume on 10/01/24. cyanocobalamin (vitamin B-12) [Vitamin B-12] 1,000 mcg tablet extended release 1,000 mcg PO DAILY Hold Instructions: Resume on 09/29/24. Date of admission: 09/28/24 16:17 Primary Care Provider: Loco,Mirella Palomares PA-C Admitting Provider: Rahul Dwyer Attending physician on admission: Rahul Dwyer Condition: Stable
== END 2024-09-28 16:50 | disposition home or self-care (01) ==
LOC: ANHSURGERY 16:21 → ANH2MED 16:21
PROVIDERS: Admitting Provider Urology; Visit Provider Urology
PROC: 0VT04ZZ Resection of Prostate, Percutaneous Endoscopic Approach (ICD-10-PCS; CPT 55867; principal; 2024-09-27 07:30)
DX: C61 Malignant neoplasm of prostate (principal); E66.9 Obesity, unspecified; Z68.35 Body mass index [BMI] 35.0-35.9, adult; I10 Essential (primary) hypertension; E78.5 Hyperlipidemia, unspecified; Z79.899 Other long term (current) drug therapy
CPT/HCPCS: 55866; 38571; S2900; 36415; 71045; 80048; 80053; 85014; 85018; 85025; 85610; 85730; 86850; 86900; 86901; 88305; 88309; 99199; A9270; J0690; J1100; J1171; J1885; J2003; J2250; J2270; J2371; J2405; J2704; J3010; J7030; J7120

== ENCOUNTER 2024-10-05 11:15 | Outpatient (CLI) | payer OTHER, SELFPAY ==
--- NOTE | ~2024-10-05 | XR_ITS ---
EXAMINATION: CYSTOGRAM DATE: 10/05/2024 12:45 INDICATION: Postoperative evaluation TECHNIQUE: Initial inspector automatic typewriter radiograph of the pelvis was performed. Retrograde administration of Omnipaque 350 mixed with saline contrast into patient's existing Mcneil c atheter. Fluoroscopic images of the pelvis were obtained. Fluoroscopy exposure time was 1.3 minutes. DOSE AREA PRODUCT: 68.0 Gy-cm2 Total images: 18 FINDINGS: Software Specialist evaluation of the pelvis demonstrates mild degenerative disease within the bilateral femoral ac etabular joint spaces. Instillation of normal saline/contrast mixture was performed based on patient tolerance. The patient was able to tolerate approximately 100 cc of mixture. Bilateral obliques were also obtained in addition to AP. No extravasation of contrast was appreciated. IMPRESSION: No extravasation of contrast with instillation of approximately 100 cc of saline contrast mixture. Reviewed, dictated and finalized at location A. IMPRESSION: No extravasation of contrast with instillation of approximately 100 cc of salin e contrast mixture.
--- OUTSIDE RECORDS SUMMARY | 2024-10-05 11:22 | XMS_ITS | Clinical Summary ---
Author Organization [facility] Address [facility] [place] [address] Care Team Providers Care Tripe Scraper Name Role Phone Mirella Adan Primary Care Provider [phone] Allergies No known active allergies Medications aspirin [...] (12/07/2019): Added automatically from request for surgery [id number] Gout 08/17/2012 Hypothyroidism 08/17/2012 Overview (02/23/2018): slight tremor Obesity 08/17/2012 Resolved Problems Problem Noted Date Diagnosed Date Resolved Date Neck mass 02/06/2019 09/07/2021 Overview (02/06/2019): Added automatically from request for surgery [id number] Encounters Date Type Department Care Team Description 09/18/[address] [address] Mirella Adan PA Information 09/10/[address] [place] [address] Mirella Adan PA MRI Results 09/06/2024 1:55 PM CDT - 09/06/2024 11:59 PM CDT Hospital Encounter [facility] MRI [address] [facility] [place] [address] Portillo Hyatt, DO Discharge Disposition: Home or Self Care (Routine Discharge) 09/06/2024 Scan [employer] INFO SRVCS Scanned, [facility] 09/06/2024 Travel 09/03/2024 2:20 PM CDT Office Visit [address] [place] [address] Mirella Adan PA ER F/U (Left achilles tendon tear ) 09/03/2024 Travel 09/01/2024 2:01 PM CDT - 09/01/2024 3:19 PM CDT Emergency [facility] Emergency Room [address] [facility] [place] [address] Enma Munoz MD Leg Injury Discharge Disposition: Home or Self Care (Routine Discharge) 09/01/2024 Travel 08/07/2024 [address] [place] [address] Mirella Adan PA Refill Request (levothyroxin 150mg-- [...] 01/16/2021, 05/23/2020, Additional history exists PHQ-2 (Physician [place]) 03/14/2024 01/12/2024 Annual Physical 01/11/2025 01/12/2024, 11/12, [...] well visualized and is partially beyond the [id number]. Mild intrinsic muscular atrophy. Ordered By: PORTILLO HYATT Interpreted By: Dwayne Crespo, 09/11/2024 10:36 AM Narrative 09/11/2024 10:[address] [facility] [address] [place] [address] EXAMINATION: MRI Left Ankle without Contrast EXAM [...] well visualized and is partially beyond the [id number]. Sinus Tarsi: Within normal limits. Tendons: The [...] Procedure Note Dwayne Crespo MD - 09/11/2024 [facility] [place] [address] [place] [address] EXAMINATION: MRI Left Ankle without Contrast EXAM [...] not well visualized and is partially beyond [id number]. Sinus Tarsi: Within normal limits. Tendons: The [...] well visualized and is partially beyond the [id number].Mild intrinsic muscular atrophy. Ordered By: PORTILLO HYATT Interpreted By: Dwayne Crespo, 09/11/2024 10:36 AM Portillo Hyatt DO MRI Final Result * Splint Application (09/01/2024 3:00 PM CDT) Narrative Enma Munoz MD - 09/01/2024 3:00 PM CDT Enma Munoz MD 09/03/2024 9:02 AM Splint Application Date/Time: 09/01/2024 3:00 PM Performed by: Enma Munoz MD Authorized by: Enma Munzo MD Consent: Consent obtained: Verbal Consent given by: Patient Risks, benefits, and alternatives were discussed: yes Risks discussed: Numbness and pain Wendell protocol: Procedure explained and questions answered to [...] 2:43 PM Narrative 09/01/2024 2:[address] [facility] [address] [place] [address] Examination: Right ankle. Exam time: 1431 hours. [...] Procedure Note Bill Manrique MD - 09/01/2024 [facility] [address] [place] [address] Examination: Right ankle. Exam time: 1431 hours. [...] Med Group Scanned SCANNING Final Resu lt [facility] ONBASE from Last 3 Months or Most Recently Relevant to Health Maintenance Insurance [employer] Care Teams Tripe Scraper Relationship Specialty Start Date End Date Mirella Adan PA [address] [place] [address] PCP - General PHYSICIAN PEDIATRIC SURGEON 02/22/18
--- OUTSIDE RECORDS SUMMARY | 2024-10-05 11:22 | XMS_ITS | Encounter Summary ---
Author Organization [facility] Address [facility] [place] [address] Care Team Providers Care Special Weapons And Tactics Officer Name Role Phone Mirella Adan Primary Care Provider [phone] Encounter Details Date Type Department Care Team ([facility] st Contact Info) Description 10/11/2017 Abstract [facility] Mirella Adan PA [address] [place] [address] Social History Tobacco Use Types Packs/Day Years Used Date Smoking Tobacco: Never Assessed Sex and Gender Information Value Date Recorded Sex Assigned at Not on file Legal Sex Male 6:55 PM CDT Gender Identity Not on file Sexual Orientation Not on file documented as of this encounter Miscellaneous Notes * Letter - NADEEN Sheppard - 10/11/2017 12:00 AM CDT 10-11-2017 Desmond Christopher [address] [address] : 1960 Lab Order: TSH, free T4 Dx: E03.9 Hypothyroidism, unspecified Fasting [] Non-Fasting [x] Normal [x] Stat [] HANGER * Letter - NADEEN Sheppard - 10/11/2017 12:00 AM CDT 10-11-2017 Desmond Christopher [address] [address] : 1960 Lab Order: Uric Acid Dx: M10.9 Gout, unspecified Fasting [] Non-Fasting [x] Normal [x] Stat [] HANGER documented in this encounter Plan of Treatment Not on file documented as of this encounter Visit Diagnoses Not on filedocumented in this encounter Additional Health Concerns Infection Onset Date Last Indicated Resolved Time COVID-19 Rule Out 12/09/2019 12/09/2019 12/10/2019 3:36 PM CDT documented as of this encounter Care Teams Special Weapons And Tactics Officer Relationship Specialty Start Date End Date Mirella Adan PA [address] [place] [address] PCP - General PHYSICIAN ANIMAL STICKER 02/22/18 documented as of this encounter
--- OUTSIDE RECORDS SUMMARY | 2024-10-05 11:22 | XMS_ITS | Clinical Summary ---
Author Organization [facility] Address [address] [facility] [address] [place] [address] Phone Care Team Providers Care Pediatric Oncology Nurse Name Role Phone Unavailable Primary Care Provider [...] 10/10/2018 Insurance [employer] BL[facility]ESS[facility]
--- OUTSIDE RECORDS SUMMARY | 2024-10-05 11:22 | XMS_ITS | Encounter Summary ---
Author Organization [facility] Address [address] [place] [address] Care Team Providers Care Low Altitude Air Defense Gunner Name Role Phone Mirella Adan Primary Care Provider [phone] Encounter Details Date Type Department Care Team (Late st Contact Info) Description 12/07/2019 Prep for Procedure [facility] [address] [place] [address] Rinku Arguello MD [address] [address] Social History Tobacco Use Types [...] DETECTED NOT DETECTED 12/10/2019 3:35 PM CDT [facility] Comment: A Not Detected (negative) test [...] providers and patients using the following websites: https://www.[employer].com/home/Covid-19/HCP/Quest[facility]/fact- sheet.html https://www.[employer]/home/Covid-19/Patients/ QuestIVD/fact-sheet.html This test has been authorized by the FDA under an Emergency Use Authorization (EUA) for use by authorized laboratories. Due to the current public health emergency, [facility] is receiving a high volume of samples [...] about COVID-19 can be found at the [facility] website: www.[employer]urigo [employer]/Covid19. Test performed at [facility] [address] [address] Director: JENISE WHEAT DO,MPH FIRST TEST YES 12/09/2019 1:00 PM CDT [facility] EMPLOYED IN HEALTHCARE NO 12/09/2019 1:00 PM CDT [facility] SYMPTOMATIC DEFINED BY CDC NO 12/09/2019 1:00 PM CDT [facility] DATE OF SYMPTOM ONSET UNKNOWN 12/09/2019 1:24 PM CDT [facility] HOSPITALIZATION STATUS NO 12/09/2019 1:00 PM CDT [facility] PATIENT IN ICU NO 12/09/2019 1:00 PM CDT [facility] RESIDENT OF [facility] NO 12/09/2019 1:00 PM CDT [facility] NO 12/09/2019 1:24 PM CDT [facility] PATIENT'S RACE WHITE OR 12/09/2019 1:00 PM CDT [facility] ETHNICITY NONHISPANIC 12/09/2019 1:00 PM CDT [facility] SOURCE (QST) NASOPHARYNGEAL SWAB 12/09/2019 1:00 PM CDT [facility] NASOPHARYNGEAL SWAB / Unknown 12/09/2019 1:20 PM CDT us Rinku Arguello MD MICROBIOLOGY - GENERAL ORDERABLE S Final Result [facility] [address] [place] [address], [facility] [address] [facility] [address], documented in this encounter Visit Diagnoses Diagnosis Preop testing- Primary Preoperative examination, unspecified documented in this encounter Additional Health Concerns Infection Onset Date Last Indicated Resolved Time COVID-19 Rule Out 12/09/2019 12/09/2019 12/10/2019 3:36 PM CDT documented as of this encounter Care Teams Low Altitude Air Defense Gunner Relationship Specialty Start Date End Date Mirella Adan PA [address] [place] [address] PCP - General PHYSICIAN SPECIMEN COLLECTOR 02/22/18 documented as of this encounter
--- OUTSIDE RECORDS SUMMARY | 2024-10-05 11:22 | XMS_ITS | Encounter Summary ---
Author Organization [facility] Address [address] [place] [address] Care Team Providers Care Inside Sales Consultant Name Role Phone Mirella Adan Primary Care Provider [phone] Encounter Details Date Type Department Care Team ([facility] st Contact Info) Description 01/18/2024 Splother Message [facility] [address] [place] [address] [facility] Provider CT scan Social History Tobacco Use [...] documented as of this encounter Care Teams Inside Sales Consultant Relationship Specialty Start Date End Date Mirella Adan PA [address] [place] [place] [address] PCP - General PHYSICIAN FAMILY CENTERED SPECIALIST 02/22/18 documented as of this encounter
--- OUTSIDE RECORDS SUMMARY | 2024-10-05 11:22 | XMS_ITS | Clinical Summary ---
Author Organization [facility] Address [address] [place] [address] Phone Care Team Providers Care Insurance Risk Surveyor Name Role Phone Mirella Adan Primary Care Provider [phone] Allergies No known active allergies Medications allopurinol [...] (09/11/2024): Added automatically from request for surgery [id number] Gout 08/17/2012 Hypothyroidism 08/17/2012 Overview (09/11/2024): slight tremor Obesity 08/17/2012 Encounters Date Type Department Care Team Description 09/11/2024 1:00 PM CDT Office Visit [facility] [address] [place] [address] Nadya Sarmiento, STOCKLAYER, RECORDS MANAGEMENT ASSISTANT Achilles tendon rupture, left, subsequent encounter [...] patient's age to complete this topic Insurance [place] Care Teams Insurance Risk Surveyor Relationship Specialty Start Date End Date Mirella Adan PA [address] [place] [phone] PCP - General Physician Teacher Selection Specialist 09/11/24
== END 2024-10-05 11:16 | disposition home or self-care (01) ==
PROVIDERS: Visit Provider Urology
DX: C61 Malignant neoplasm of prostate (principal)
CPT/HCPCS: 51600; 74430; Q9967